=== PATIENT | female | born 1950 | race Caucasian/White ===

== ENCOUNTER 2023-04-14 12:24 | Outpatient (OUT) | payer MEDICARE, SELFPAY ==
--- NOTE | 2023-04-14 12:43 | CA_ITS ---
[facility] Test Date: 2023-04-28 Pat Name: DANIEL HERNANDEZ Department: Room: - Gender: Female [employer]: : 1950 Requested By: BRISA SCHROEDER Order Number: [id number] Reading MD: BRISA SCHROEDER Interpretive Statements Predominant rhythm is sinus with average rate of 77 bpm Tachycardia - max rate of 151 bpm - 257 episodes of PSVT w/ longest duration of 239 beats - longest episode of 1hr 2min 32sec w/ rate of 117-145 bpm Bradycardia - min rate of 47 bpm - longest episodes of 2min 29sec w/ rate of 55-59 bpm Ventricular ectopy - 49 PVC Second degree AV block type I Patient triggered events: 2 - no symptoms noted - associated w/ normal sinus rhythm and rate of 127 bpm Impression: Predominant rhythm is sinus with average rate of 77 bpm Fastest rate of 151 bpm and slowest rate of 47 bpm 49 PVC Second degree AV block type I noted on occasion Electronically Signed On 04-29-2023 7:28:25 EDT by BRISA SCHROEDER
== END 2023-04-14 12:25 | disposition home or self-care (01) ==
LOC: CARD 12:28
PROVIDERS: PCP Internal Medicine; Visit Provider Internal Medicine
DX: R00.2 Palpitations (principal)
CPT/HCPCS: 93242

== ENCOUNTER 2023-05-04 07:55 | Outpatient (OUT) | payer MEDICARE, SELFPAY ==
--- NOTE | 2023-05-04 07:58 | MM_ITS ---
Patient: DANIEL HERNANDEZ Exam Date: 05/04/2023 : 1950 Gender:F Ordering : DR Huy Hernandez D.O. Admission #: [id number] Family : Order #: [id number] CLICK HERE TO VIEW EXAM RADIOLOGY REPORT PROCEDURE: MM TOMOSYNTHESIS SCREENING BI COMPARISON: MG MAMM SCREEN 3D ODELL CAD, 05/02/2022. MG MAMM SCREEN 3D ODELL CAD, 04/19/2021. MG MAMM SCREEN ODELL W CAD, 02/27/2020. MG MAMM SCREEN ODELL W CAD, 04/30/2018. INDICATIONS: Screening Calculator Name NCI Breast Cancer Risk Assessment Tool 5 Year Breast Cancer Risk 1.60% Lifetime Breast Cancer Risk 3.40% Personal Breast Cancer No Personal Ovarian Cancer No Treatments None Family Cancers Father with rectal cancer at age 70. LOCATION: [facility] BREAST COMPOSITION: Almost entirely fatty. FINDINGS: DIAGNOSTIC CATEGORY 2--BENIGN FINDING: RIGHT BREAST: No significant suspicious finding. Stable, chronic skin surface mole upper outer quadrant. No significant change has occurred. LEFT BREAST: No significant suspicious finding. No significant change has occurred. RECOMMENDATIONS: ROUTINE MAMMOGRAM AND CLINICAL EVALUATION IN 12 MONTHS. PLEASE NOTE: A NORMAL MAMMOGRAM DOES NOT EXCLUDE THE POSSIBILITY OF BREAST CANCER. A CLINICALLY SUSPICIOUS PALPABLE LUMP SHOULD BE BIOPSIED. Dictated by: Maninder Yarbrough M.D. on 05/05/2023 at 12:43 Approved by: Maninder Yarbrough M.D. on 05/05/2023 at 13:03
[2023-05-04 08:39] LABS: Basophils Absolute Auto 0.1 10^3/uL (0.0-0.1); Basophils Percent Auto 0.9 % (0.2-2.0); Eosinophils Absolute Auto 0.3 10^3/uL (0.0-0.7); Eosinophils Percent Auto 5.9 % (0.9-7.0); Hemoglobin 13.2 g/dL (12.0-16.0); Immature Granulocytes Abs Auto 0.02 10^3/uL (0.00-0.03); Immature Granulocytes Pct Auto 0.4 % (0.0-0.5); Lymphocytes Absolute Auto 1.8 10^3/uL (1.2-3.8); Lymphocytes Percent Auto 32.4 % (20.5-60.0); Mean Corpuscular HGB Conc 33.8 g/dL (29.9-35.2); Mean Corpuscular Hemoglobin 31.4 pg (26.7-34.0); Mean Corpuscular Volume 92.9 fL (81.0-99.0); Monocytes Absolute Auto 0.5 10^3/uL (0.3-0.8); Monocytes Percent Auto 8.2 % (1.7-12.0); Neutrophils Absolute Auto 2.9 10^3/uL (1.4-6.5); Neutrophils Percent Auto 52.2 % (43.0-75.0); Platelet Count 299 10^3/uL (150-450); Red Cell Distribution Width 12.9 % (11.0-15.0); White Blood Count 5.6 10^3/uL (4.0-11.0)
[2023-05-04 09:21] LABS: Alanine Aminotransferase 38 U/L (14-59); Anion Gap 10.2; BUN Creatinine Ratio 40.6; Calcium 9.6 mg/dL (8.5-10.1); Carbon Dioxide 30.5 mmol/L (21.0-32.0); Chloride 100 mmol/L (98-107); Chol HDL Ratio 3.1; Cholesterol 169 mg/dL (<=200); Estimated GFR (African America >60 (>=60); Estimated GFR (Non-African Ame >60 (>=60); Glucose 107 mg/dL (74-106); HDL Cholesterol 54 mg/dL (40-60); LDL Cholesterol Calculated 86.4 mg/dL; Potassium 3.7 mmol/L (3.5-5.1); Sodium 137 mmol/L (136-145); Thyroid Stimulating Hormone 1.514 uIU/mL (0.358-3.740); Triglycerides 143 mg/dL (<=150); VLDL CHOLESTEROL 28.6 mg/dL
== END 2023-05-04 07:56 | disposition home or self-care (01) ==
LOC: MAMMO 07:55
PROVIDERS: PCP Internal Medicine; Visit Provider Internal Medicine
DX: Z12.31 Encounter for screening mammogram for malignant neoplasm of breast (principal); R00.2 Palpitations; I10 Essential (primary) hypertension; E78.00 Pure hypercholesterolemia, unspecified; Z79.899 Other long term (current) drug therapy; Z80.8 Family history of malignant neoplasm of other organs or systems
CPT/HCPCS: 36415; 77063; 77067; 80048; 80061; 84443; 84460; 85025

== ENCOUNTER 2023-10-15 11:12 | Outpatient (OUT) | payer MEDICARE, SELFPAY ==
--- NOTE | 2023-10-15 10:40 | NM_ITS ---
Patient Name: DANIEL HERNANDEZ MR#: [id number] : 1950 Exam Date: 10/15/2023 Ordering Doctor: DR Huy Hernandez D.O. RADIOLOGY REPORT PROCEDURE: NM ANA PERF SPECT REST STR COMPARISON: None. INDICATIONS: PALPITATIONS, SYMPTOMATIC PVCs, DYSPNEA ON EXERTION TECHNIQUE: Exam Description: Stress/Rest one day protocol gated SPECT Rest Imagin.1 mCi Tc-99m Cardiolite IV on 10/15/2023 Stress Imaging 30.7 mCi Tc-99m Cardiolite IV on 10/15/2023 Exercise Protocol: 0.4 mg Lexiscan given IV Heart Rate (bpm): Rest: 65 Max: 173 PMHR: 119 Blood Pressure: Rest: 108/68 Max: 128/70 Symptoms: Rest and peak stress ECG findings were abnormal and the exercise portion of the study was abnormal per attending physician Dr. Sriram Hernandez . For more details please see separate cardiac stress test report. FINDINGS: QUALITY OF STUDY: Excellent. PERFUSION DEFECT: None. LOCATION: N/A SIZE: N/A. SEVERITY: N/A. TYPE: N/A. WALL MOTION: Normal. LV SIZE: Normal. 54 mL. TID / TCD: None; 0.8 LVEF: Normal. Calculated EF 84%. SUMMARY: Myocardial perfusion imaging study is NORMAL. CONCLUSION: 1. Normal nuclear medicine myocardial perfusion scan. 2. Abnormal stress test. Please see Dr. Sriram Hernandez's report. Dictated by: Maninder Yarbrough M.D. on 10/16/2023 at 14:59 Approved by: Maninder Yarbrough M.D. on 10/16/2023 at 15:02
--- NOTE | 2023-10-15 13:20 | PM.STRESS ---
Stress Test Stress Test Requesting physician: Huy Hernandez Procedure: Lexiscan stress test General Information: Reason for Stress Test: [evaluation of the patient with palpitations and dyspnea on exertion.] Cardiac History and Risk Factors: [Mrs. Romero is a 73-year-old patient with no personal history of coronary disease she has a strong family history with siblings and parents having coronary disease. Her primary risk factors include essential hypertension and hyperlipidemia.] Resting 12 - Lead Electrocardiogram: Normal sinus rhythm with ventricular rate of 65 bpm. The NC interval is 0.16, QRS 0.08. QT 0.40 all within normal limits. There are no pathologic Q waves and only nonspecific ST-T wave changes. Stress Test: Protocol: [Lexiscan protocol] Exercise Capacity: [Not applicable] Blood Pressure Response: [Blood pressure decreased with an increase in heart rate which is appropriate for Lexiscan infusion] Rhythm: [Patient remained in sinus rhythm during infusion.] ST - Response: [Immediately after Lexiscan injection the patient developed [address] depression with flattening of T waves in the inferior lateral leads. This resolved within one minute without treatment.] Patient Response: [The patient did complain of shortness of breath and chest heaviness during infusion. This resolved within three minutes without treatment] Interpretation: There was objective and subjective evidence suspicious for myocardial ischemia during infusion. Cardiolite was injected with images in interpretation pending
[2023-10-15] MEDS: REGADENOSON 0.4 MG/5 ML SYRINGE IV (13:22)
== END 2023-10-15 11:13 | disposition home or self-care (01) ==
LOC: NM 11:12
PROVIDERS: PCP Internal Medicine; Visit Provider Internal Medicine
DX: R00.2 Palpitations (principal); I49.3 Ventricular premature depolarization; R07.2 Precordial pain; R06.09 Other forms of dyspnea
CPT/HCPCS: 78452; 93017; A9500; J2785

== ENCOUNTER 2023-10-22 09:30 | Outpatient (OUT) | payer MEDICARE, SELFPAY ==
--- OUTSIDE RECORDS SUMMARY | 2023-10-22 09:35 | XMS_ITS | CCD ---
Author Name Unknown Address [address] [place] [address] Organization [facility] Care Team Providers Care Kitchen Food Server Name Role Phone ELDA, DR LEDEZMA Attending Unavailable ELDA, DR LEDEZMA Consulting Unavailable ELDA, DR LEDEZMA Primary Care Unavailable ELDA, DR LEDEZMA Admitting Unavailable KSENIA, DR MANINDER Burrell Consulting Unavailable DIANE GARAY Attending Unavailable DIANE GARAY Consulting Unavailable ELDA, DR LEDEZMA Primary Care Unavailable DIANE GARAY Admitting Unavailable Huy Schroeder Unavailable JEANMARIE BEST Attending Unavailable Allergies Allergy Classification Reported Allergen(s) Allergy Type Date of Onset Reaction(s) Facility (1 source) HYDROmorphone Drug Allergy 7 [facility] (1 source) Morphine Drug Allergy 7 [facility] (1 source) Sulfonamides (Antibiotic) Drug allergy (disorder) 7 [facility] (6 sources) HYDROmorphone Drug Allergy Unknown [facility] Other (6 sources) Morphine Drug Allergy Unknown [facility] Other (4 sources) Triple Sulfonamides *SULFONAMIDES* Propensity to adverse reactions Unknown [facility] [employer] Other Medications Current Medications Medication Drug Class(es) Dates Sig (Normalized) Sig (Original) aspirin 81 mg delayed release oral tablet (6 sources) Platelet Aggregation Inhibitor, Nonsteroidal Anti-inflammator y Drug take 1 tablet by mouth every twenty-four hours Aspirin 81 81 MG 1 tablet Orally Once a day Active atorvastatin 20 mg oral tablet (6 sources) HMG-CoA Reductase Inhibitor take 1 tablet by mouth once daily in the evening Atorvastatin Calcium 20 MG TAKE ONE TABLET BY MOUTH EVERY EVENING Active Calcium (6 sources) Phosphate Binder, Calcium Calcium + D Active hydroCHLOROthiazide 25 mg oral tablet (6 sources) Thiazide Diuretic Start: 3 take 1 tablet by mouth every twenty-four hours hydroCHLOROthiazide 25 MG 1 tablet in the morning Orally Once a day Oct, Active lisinopril 20 mg oral tablet (6 sources) Angiotensin Converting Enzyme Inhibitor Start: 3 take 1 tablet by mouth every twenty-four hours Lisinopril 20 MG 1 tablet Orally Once a day Oct, Active meclizine hydrochloride 25 mg oral tablet (6 sources) Antiemetic Start: 3 take 1 tablet by mouth every six hours as needed Meclizine HCl 25 MG 1 tablet Orally every 6 hours as needed for 5 days Oct, Active 24 hr metoprolol succinate 50 mg extended release oral tablet (9 sources) beta-Adrenergic Mary Lou Start: 3 take 1 tablet by mouth every twenty-four hours Metoprolol Succinate ER 50 MG 1 tablet Orally Once a day replacing 25 mg Apr, Active Start: 11-10-2022 take 1 tablet by ham th every twenty-four hours Metoprolol Succinate ER 25 MG 1 tablet Orally Once a day for 30 days Oct, Active Start: 11-06-2022 take 1 capsule by mouth once d aily Metoprolol Succinate 25 MG 1 capsule Orally Once a day Oct, Active ondansetron 4 mg disintegrating oral tablet (6 sources) Serotonin-3 Receptor Antagonist Start: 11-06-2022 take 1 tablet by mouth every six hours as needed Ondansetron 4 MG 1 tablet on the tongue and allow to dissolve Orally every 6 hours as needed for 5 days Oct, Active potassium chloride 10 meq extended release oral tablet (6 sources) take 1 tablet by mouth once daily Potassium Chloride ER 10 MEQ TAKE ONE TABLET BY MOUTH DAILY for 30 Active take 1 tablet by mouth every twe lve hours Klor-Con 10 10 MEQ 1 tablet with food Orally Twice a day Active rOPINIRole 0.25 mg oral tablet (6 sources) Nonergot Dopamine Agonist take 1 tablet by mouth once daily in the evening rOPINIRole HCl 0.25 MG TAKE ONE TABLET BY MOUTH EVERY EVENING for 30 Active Problems Active Problems Problem Classification Problem Date Documented Date Episodic/Chronic Cardiac dysrhythmias (8 sources) Atrial fibrillation; Translations: [Unspecified atrial fibrillation] Chronic Cardiac dysrhythmias (2 sources) Palpitations Episodic Conditions associated with dizziness or vertigo (6 sources) Benign paroxysmal positional vertigo; Translations: [Benign paroxysmal vertigo, bilateral] Episodic Disorders of lipid metabolism (13 sources) Familial hypercholesterolemia; Translations: [Pure hypercholesterolemia] Onset: 05-05-2022 Chronic Essential hypertension (15 sources) Essential (primary) hypertension; Translations: [Essential hypertension] Onset: 05-05-2022 Chronic Fluid and electrolyte disorders (6 sources) Hypokalemia; Translations: [Hypokalemia] Episodic Menopausal disorders (6 sources) Decreased estrogen level; 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 Nonspecific chest pain (1 source) Precordial pain Episodic Osteoarthritis (6 sources) Localized, primary osteoarthritis of the shoulder region; Translations: [Primary osteoarthritis, right shoulder] Chronic Other aftercare (2 sources) Other shelter (current) drug therapy; Translations: [OTH LONG-TERM CURRENT DRUG THERAPY] Onset: 05-05-2022 Episodic Other connective tissue disease (6 sources) Non-traumatic partial tear of right rotator cuff; Translations: [Incomplete rotator cuff tear or rupture of right shoulder, not specified as traumatic] Episodic Other hereditary and degenerative nervous system conditions (6 sources) Restless legs; Translations: [Restless legs syndrome] Chronic Other lower respiratory disease (1 source) Other forms of dyspnea Episodic Other non-traumatic joint disorders (6 sources) Shoulder pain; Translations: [Pain in left shoulder] Episodic Other nutritional; endocrine; and metabolic disorders (6 sources) Simple obesity ; Translations: [Other obesity due to excess calories] Chronic Other nutritional; endocrine; and metabolic disorders (6 sources) Obesity; Translations: [Obesity, unspecified] Chronic Other nutritional; endocrine; and metabolic disorders (4 sources) Obesity caused by energy imbalance; Translations: [Other obesity due to excess calories] Chronic Other nutritional; endocrine; and metabolic disorders (4 sources) Body mass index 30+ - obesity; Translations: [Body mass index (BMI) 31.0-31.9, adult] Chronic Other nutritional; endocrine; and metabolic disorders (2 sources) Other obesity due to excess calories Chronic Other nutritional; endocrine; and metabolic disorders (2 sources) Body mass index (BMI) 31.0-31.9, adult Chronic Other screening for suspected conditions (not mental disorders or infectious disease) (5 sources) Encounter for screening mammogram for malignant neoplasm of breast; Translations: [ENC SCR MAMMO MALIG NEOPLASM BREAST] Onset: 05-02-2022 Episodic Residual codes; unclassified (1 source) Family history of malignant neoplasm of other organs or systems; Translations: [FAM HX MALIG NEOPLASM OTH ORGN/SYS] Onset: 05-05-2022 Episodic Sprains and strains (6 sources) Strain of muscle(s) and tendon(s) of the rotator cuff of left shoulder, initial encounter; Translations: [Strain of left rotator cuff capsule, initial encounter] Episodic Past or Other Problems Problem Classification Problem Date Documented Da te Episodic/Chronic Immunizations and screening for infectious disease (4 sources) Encounter for immunization; Translations: [ENCOUNTER FOR IMMUNIZATION] Onset: 07-09-2021 Episodic Results Test Name Value Interpretation Reference Range Facil ity CBC AUTO DIFFon 05-02-2022 BASO # 0.0 103/ul Normal 0.0-0.1 [facility] Comment on above: Performed By: #### C BC #### [facility] [address] [place] [address] Dr. Lisa Avila Basophils/100 WBC (Bld) 0.9 % Normal 0.2-2.0 [facility] Comment on above: Performed By: #### C BC #### [facility] [address] [place] [address] Dr. Lisa Avila EO # 0.2 103/ul Normal 0.0-0.7 [facility] Comment on above: Performed By: #### C BC #### [facility] [address] [place] [address] Dr. Lisa Avila Eosinophils/100 WBC (Bld) 4.1 % Normal 0.9-7.0 [facility] Comment on above: Performed By: #### C BC #### [facility] [address] [place] [address] Dr. Lisa Avila Erythrocyte distribution width (RBC) [Ratio] 12.5 % Normal 11.0-15.0 [facility] Comment on above: Performed By: #### C BC #### [facility] [address] [place] [address] Dr. Lisa Avila Hematocrit (Bld) [Volume fraction] 37.0 % Normal 36.0-48.0 [facility] Comment on above: Performed By: #### C BC #### [facility] [address] [place] [address] Dr. Lisa Avila Hemoglobin (Bld) [Mass/Vol] 12.3 g/dL Normal 12.0-16.0 [facility] Comment on above: Performed By: #### C BC #### [facility] [address] [place] [address] Dr. Lisa Avila IG # 0.01 10e3/ul Normal 0.00-0.03 [facility] Comment on above: Performed By: #### C BC #### [facility] [address] [place] [address] Dr. Lisa Avila IG % 0.2 % Normal 0.0-0.5 [facility] Comment on above: Performed By: #### C BC #### [facility] [address] [place] [address] Dr. Lisa Avila LYMPH # 1.6 103/ul Normal 1.2-3.8 [facility] Comment on above: Performed By: #### C BC #### [facility] [address] [place] [address] Dr. Lisa Avila Lymphocytes/100 WBC (Bld) 33.6 % Normal 20.5-60.0 [facility] Comment on above: Performed By: #### C BC #### [facility] [address] [place] [address] Dr. Lisa Avila MANUAL DIFF REQ NO Normal [facility] Comment on above: Performed By: #### C BC #### [facility] [address] [place] [address] Dr. Lisa Avila MCH (RBC) [Entitic mass] 31.2 pg Normal 26.7-34.0 [facility] Comment on above: Performed By: #### C BC #### [facility] [address] [place] [address] Dr. Lisa Avila MCHC (RBC) [Mass/Vol] 33.2 g/dL Normal 29.9-35.2 [facility] Comment on above: Performed By: #### C BC #### [facility] [address] [address] [address] Lisa Avila MCV (RBC) [Entitic vol] 93.9 fL Normal 81.0-99.0 [facility] Comment on above: Performed By: #### C BC #### [facility] [address] [address] [address] Lisa Avila MONO # 0.3 103/ul Normal 0.3-0.8 [facility] Comment on above: Performed By: #### C BC #### [facility] [address] [address] [address] Lisa Avila Monocytes/100 WBC (Bld) 7.4 % Normal 1.7-12.0 [facility] Comment on above: Performed By: #### C BC #### [facility] [address] [place] [address] Dr. Lisa Avila NEUT # 2.5 103/ul Normal 1.4-6.5 [facility] Comment on above: Performed By: #### C BC #### [facility] [address] [place] [address] Dr. Lisa Avila Neutrophils/100 WBC (Bld) 53.8 % Normal 43.0-75.0 [facility] Comment on above: Performed By: #### C BC #### [facility] [address] [address] [address] Lisa Avila Platelet mean volume (Bld) [Entitic vol] 9.7 fL Normal 9.5-13.5 [facility] Comment on above: Performed By: #### C BC #### [facility] [address] [address] [address] Lisa Avila PLT 276 103/ul Normal 150-450 [facility] Comment on above: Performed By: #### C BC #### [facility] [address] [address] [address] Lisa Avila RBC 3.94 106/ul Critically low 4.20-5.40 [facility] Comment on above: Performed By: #### C BC #### [facility] [address] [address] [address] Lisa Avila WBC 4.6 103/ul Normal 4.0-11.0 [facility] Comment on above: Performed By: #### C BC #### [facility] [address] [address] [address] Lisa Avila LIPID PROFILEon 05-02-2022 CHOL-HDL RATIO NORM SEE BELOW Normal [facility] Comment on above: Result Comment: 3.3 - 4.4 LOW RISK 4.4 - 7.1 AVERAGE RISK 7.1 - 11.0 MODERATE RISK >11.0 HIGH RISK Performed By: #### A LT, LIPID, BMP #### [facility] [address] [place] [address] Dr. Lisa Avila Cholesterol [Mass/Vol] 158 mg/dL Normal <=200 [facility] Comment on above: Performed By: #### A LT, LIPID, BMP #### [facility] [address] [place] [address] Dr. Lisa Avila Cholesterol in HDL [Mass/Vol] 49 mg/dL Normal 40-60 [facility] Comment on above: Performed By: #### A LT, LIPID, BMP #### [facility] [address] [place] [address] Dr. Lisa Avila Cholesterol in LDL [Mass/Vol] 86.8 mg/dL Normal [facility] Comment on above: Performed By: #### A LT, LIPID, BMP #### [facility] [address] [address] [address] Lisa Avila Cholesterol.total/C holesterol in HDL [Mass ratio] 3.2 {ratio} Normal [facility] Comment on above: Performed By: #### A LT, LIPID, BMP #### [facility] [address] [place] [address] Dr. Lisa Avila HDL NORMAL > or = 60 mg/dl - LO W CARDIOVASCULAR RISK <40 mg/dl - HIGH CARDIOVASCULAR RISK Normal [facility] Comment on above: Performed By: #### A LT, LIPID, BMP #### [facility] [address] [place], [place] [address] Dr. Lisa Avila LDL CALC NORMAL SEE BELOW Normal [facility] Comment on above: Result Comment: <100 mg/dl OPTIMAL 100 - 129 mg/dl NEAR OR ABOVE OPTIMAL 130 - 159 mg/dl BORDERLINE HIGH 160 - 189 mg/dl HIGH >190 mg/dl VERY HIGH Performed By: #### A LT, LIPID, BMP #### [facility] [address] [address] [address] Lisa Avila Triglyceride [Mass/Vol] 111 mg/dL Normal <=150 [facility] Comment on above: Performed By: #### A LT, LIPID, BMP #### [facility] [address] [address] [address] Lisa Avila VLDL CALC 22.2 mg/dL Normal [facility] Comment on above: Performed By: #### A LT, LIPID, BMP #### [facility] [address] [address] [address] Lisa Avila MG MAMM SCREEN 3D ODELL CADon 05-02-2022 MG MAMM SCREEN 3D ODELL CAD Patient: DANIEL HERNANDEZ Exam Date: 05/02/2022 : 1950 Gender:F Ordering : DR HUY SCHROEDER D.O. Admission #: [id number] Family : Order #: [id number] CLICK HERE TO VIEW EXAM RADIOLOGY REPORT PROCEDURE: MAMMOGRAM SCREENING 3D BILATERAL CAD COMPARISON: MG MAMM SCREEN 3D ODELL CAD, 04/19/2021. MG MAMM SCREEN ODELL W CAD, 02/27/2020. INDICATIONS: Screening mammography Calculator Name NCI Breast Cancer Risk Assessment Tool 5 Year Breast Cancer Risk 1.60% Lifetime Breast Cancer Risk 3.70% Personal Breast Cancer No Personal Ovarian Cancer No Treatments None Family Cancers Father with rectal cancer at age 70. LOCATION: [facility] BREAST COMPOSITION: Almost entirely fatty. FINDINGS: DIAGNOSTIC CATEGORY 1--NEGATIVE. RIGHT BREAST: No significant suspicious finding. No significant change has occurred. LEFT BREAST: No significant suspicious finding. No significant change has occurred. RECOMMENDATIONS: ROUTINE MAMMOGRAM AND CLINICAL EVALUATION IN 12 MONTHS. PLEASE NOTE: A NORMAL MAMMOGRAM DOES NOT EXCLUDE THE POSSIBILITY OF BREAST CANCER. A CLINICALLY SUSPICIOUS PALPABLE LUMP SHOULD BE BIOPSIED. Dictated by: Maninder Yarbrough M.D. on 05/02/2022 at 09:35 Approved by: Maninder Yarbrough M.D. on 05/02/2022 at 09:50 Normal [facility] PROF CHEM 8 (BAS METB)on Anion gap [Moles/Vol] 9.9 mmol/L Normal [facility] Comment on above: Performed By: #### A LT, LIPID, BMP #### [facility] [address] [place] [address] Dr. Lisa Avila Calcium [Mass/Vol] 9.1 mg/dL Normal 8.5-10.1 [facility] Comment on above: Performed By: #### A LT, LIPID, BMP #### [facility] [address] [place] [address] Dr. Lisa Avila Chloride [Moles/Vol] 101 mmol/L Normal 98-107 [facility] Comment on above: Performed By: #### A LT, LIPID, BMP #### [facility] [address] [place] [address] Dr. Lisa Avila CO2 [Moles/Vol] 30.8 mmol/L Normal 21.0-32.0 [facility] Comment on above: Performed By: #### A LT, LIPID, BMP #### [facility] [address] [place] [address] Dr. Lisa Avila Creatinine [Mass/Vol] 0.62 mg/dL Normal 0.55-1.02 [facility] Comment on above: Performed By: #### A LT, LIPID, BMP #### [facility] [address] [place] [address] Dr. Lisa Avila EGFR-AF UGANDAN 60 mL/min/1.73m2 Normal >=60 [facility] Comment on above: Performed By: #### A LT, LIPID, BMP #### [facility] [address] [place] [address] Dr. Lisa Avila EGFR-NON AF UGANDAN 60 mL/min/1.73m2 Normal >=60 [facility] Comment on above: Performed By: #### A LT, LIPID, BMP #### [facility] [address] [address] [address] Lisa Avila Glucose [Mass/Vol] 101 mg/dL Normal 74-[address] [facility] Comment on above: Performed By: #### A LT, LIPID, BMP #### [facility] [address] [place] [address] Dr. Lisa Avila Potassium [Moles/Vol] 3.7 mmol/L Normal 3.5-5.1 [facility] Comment on above: Performed By: #### A LT, LIPID, BMP #### [facility] [address] [place] [address] Dr. Lisa Avila Sodium [Moles/Vol] 138 mmol/L Normal 136-145 [facility] Comment on above: Performed By: #### A LT, LIPID, BMP #### [facility] [address] [place] [address] Dr. Lisa Avila Urea nitrogen [Mass/Vol] 24.0 mg/dL Critically high 7.0-18.0 [facility] Comment on above: Performed By: #### A LT, LIPID, BMP #### [facility] [address] [place] [address] Dr. Lisa Avila Urea nitrogen/Creatinine [Mass ratio] 38.7 mg/mg Normal [facility] Comment on above: Performed By: #### A LT, LIPID, BMP #### [facility] [address] [place] [address] Dr. Lisa Avila [facility] 05-02-2022 ALT [Catalytic activity/Vol] 33 U/L Normal 14-59 [facility] Comment on above: Performed By: #### A LT, LIPID, BMP #### [facility] [address] [place] [address] Dr. Lisa Avila Vital Signs Date Time Vital Sign Value Performing Clinician Facility 10-12-2023 08:30-0500 Body height 166.37 cm Huy Schroeder Other [facility] Other 10-12-2023 08:30-0500 Body mass index (BMI) [Ratio] 31.82 kg/m2 Huy Ball Other [facility] Other 10-12-2023 08:30-0500 Body weight 88.09 kg Huy Ball Other [facility] Other 10-12-2023 08:30-0500 Diastolic blood pressure 75 mm[Hg] Huy Ball Other [facility] Other 10-12-2023 08:30-0500 Respiratory rate 12 /min Huy Ball Other [facility] Other 10-12-2023 08:30-0500 Systolic blood pressure 132 mm[Hg] Huy Ball Other [facility] Other 04-09-2023 08:30-0400 Body height 166.37 cm Huy Ball Other [facility] Other 04-09-2023 08:30-0400 Body mass index (BMI) [Ratio] 31.69 kg/m2 Huy Ball Other [facility] Other 04-09-2023 08:30-0400 Body weight 87.73 kg Huy Ball Other [facility] Other 04-09-2023 08:30-0400 Diastolic blood pressure 81 mm[Hg] Huy Ball Other [facility] Other 04-09-2023 08:30-0400 Respiratory rate 12 /min Huy Ball Other [facility] Other 04-09-2023 08:30-0400 Systolic blood pressure 122 mm[Hg] Huy Ball Other [facility] Other Encounters Encounter Date Encounter Type Care Provider Facility Start: 10-12-2023 End: 10-12-2023 ambulatory Huy Ball Other [facility] Other Start: 10-12-2023 Office outpatient visit [address] [facility] Start: 09-24-2023 End: 09-24-2023 ambulatory JEANMARIE BEST Not Available Start: 05-05-2023 End: 05-05-2023 ambulatory Huy Elda Other [facility] Other Start: 05-05-2023 Telephone encounter Huy Elda [facility] Start: 05-01-2023 End: 05-01-2023 ambulatory Huy Schroeder Other [facility] Other Start: 05-01-2023 Telephone encounter Huy Schroeder [facility] Start: 04-09-2023 End: 04-09-2023 ambulatory Huy Schroeder Other [facility] Other Start: 04-09-2023 Patient encounter procedure Huy Schroeder [facility] Start: 11-10-2022 End: 11-10-2022 ambulatory Huy Schroeder Other [facility] Other Start: 11-10-2022 Telephone encounter Huy Schroeder [facility] Start: 11-03-2022 End: 11-03-2022 ambulatory Huy Elda Other [facility] Other Start: 11-03-2022 Telephone encounter Huy Schroeder [facility] Start: 05-02-2022 End: 05-03-[address] HUY SCHROEDER Facility:[facility] Start: 07-09-2021 End: 07-09-2021 ambulatory DIANE GARAY Facility:[facility] Immunizations Immunization Date Immunization Notes Care Provider Fa manuel 08-11-2022 influenza, high dose seasonal, preservative-free Huy Schroeder Other [facility] Other 06-13-2021 influenza virus vaccine, split virus (incl. purified surface antigen) Huy Schroeder Other [facility] Other 06-06-2020 influenza virus vaccine, split virus (incl. purified surface antigen) Huy Schroeder Other [facility] Other 07-06-2018 influenza virus vaccine, split virus (incl. purified surface antigen) Huy Schroeder Other [facility] Other 06-23-2017 influenza virus vaccine, split virus (incl. purified surface antigen) Huy Schroeder Other [facility] Other 06-16-2016 influenza virus vaccine, split virus (incl. purified surface antigen) Huy Schroeder Other [facility] Other 08-13-2015 influenza virus vaccine, split virus (incl. purified surface antigen) Huy Schroeder Other [facility] Other 08-13-2015 pneumococcal conjuga te vaccine, 13 valent Huy Schroeder Other [facility] Other 07-17-2014 influenza virus vaccine, split virus (incl. purified surface antigen) Huy Schroeder Other [facility] Other 06-08-2013 tetanus and diphther ia toxoids, adsorbed, preservative free, for adult use (5 Lf of tetanus toxoid and 2 Lf of diphtheria toxoid) Huy Schroeder Other [facility] Other Payers Date Payer Category Payer Medicare [id number] 1961 Unknown [id number] 1950 Unknown [id number] 1950 Unknown [id number] 1950 Unknown [id number] Social History Date Type Detail Facility Sex Assigned At [place] [facility] Other Evaluation note 10-12-2023 Note Date & Type Note Facility 10-12-2023 Evaluation note Encounter Date Diagnosis Assessment Notes Sep, Primary hypertension (ICD-10 - I10) This patient is instructed to consume a healthy, low-fat, low-salt diet. They are also encouraged to continue exercise to achieve/maintain a normal BMI. Patient is instructed on home BP measurements: - rest for 5 minutes w/o talking.- positioned w/ feet on floor and arm supported.- average best 2/3 readings w/ goal < 135/85.- update office w/ home readings in 2 weeks. Sep, Palpitations (ICD-10 - R00.2) Avoid Caffeine and hydrate w/ minimum 48oz fluids daily. 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 Continue Metoprolol Previous Holter w/ PVC w/o NSVT or AF Discussed further evaluation: - Echo to assess LVEF and valvular function - STress TEsting to assess coronary circulation Sep, GRAVES (dyspnea on exertion) (ICD-10 - R06.09) Avoid Caffeine and hydrate w/ minimum 48oz fluids daily. Continue Metoprolol Previous Holter w/ PVC w/o NSVT or AF Discussed further evaluation: - Echo to assess LVEF and valvular function - STress TEsting to assess coronary circulation Sep, Precordial pain (ICD-10 - R07.2) Avoid Caffeine and hydrate w/ minimum 48oz fluids daily. Continue Metoprolol Previous Holter w/ PVC w/o NSVT or AF Discussed further evaluation: - Echo to assess LVEF and valvular function - STress TEsting to assess coronary circulation Instructed to report to ER for sustained symptoms. Sep, Elevated cholesterol (ICD-10 - E78.00) Instructed on diet and exercise with continued statin therapy.Discussed the beneficial effects of lowering cholesterol in reducing the risk for cerebrovascular and cardiovascular disease. 29 Azael, 2024 Other obesity due to excess calories (ICD-10 - E66.09) This patient has been instructed on a low-fat, high-fiber diet. They are instructed to reduce calories, portion sizes and snacks. It is recommended that they exercise for 30 minutes, 3-5 times weekly. Sep, Body mass index [BMI] 31.0-31.9, adult (ICD-10 - Z68.31) [facility] Other Evaluation note 05-01-2023 Note Date & Type Note Facility 05-01-2023 Evaluation note Encounter Date Diagnosis Assessment Notes Apr, Essential hypertension (ICD-10 - I10) [facility] Other Evaluation note 04-09-2023 Note Date & Type Note Facility 04-09-2023 Evaluation note Encounter Date Diagnosis Assessment Notes Mar, Medicare annual wellness visit, subsequent (ICD-10 - Z00.00) Personalized health advice was given to the beneficiary including a written plan for screenings discussed and provided. Advanced care planning reviewed and/or information given as requested. Additional counseling was provided here today in regards to, [ ]. The above visit was performed by [ ], under direct supervision of [ ]. Document reviewed and amended by provider signed below. Mar, Primary hypertension (ICD-10 - I10) This patient is instructed to consume a healthy, low-fat, low-salt diet. They are also encouraged to continue exercise to achieve/maintain a normal BMI. Mar, Elevated cholesterol (ICD-10 - E78.00) Instructed on diet and exercise with continued statin therapy.Discussed the beneficial effects of lowering cholesterol in reducing the risk for cerebrovascular and cardiovascular disease. Mar, Palpitations (ICD-10 - R00.2) Avoid stimulants and push fluids Increase activity, walk daily Mar, Other obesity due to excess calories (ICD-10 - E66.09) This patient has been instructed on a low-fat, high-fiber diet. They are instructed to reduce calories, portion sizes and snacks. It is recommended that they exercise for 30 minutes, 3-5 times weekly. Mar, Body mass index [BMI] 31.0-31.9, adult (ICD-10 - Z68.31) Mar, High risk medication use (ICD-10 - Z79.899) Mar, Screening mammogram for breast cancer (ICD-10 - Z12.31) [facility] Other Evaluation note 11-10-2022 Note Date & Type Note Facility 11-10-2022 Evaluation note Encounter Date Diagnosis Assessment Notes Oct, Essential hypertension (ICD-10 - I10) [facility] Other Evaluation note Note Date & Type Note Facility Evaluation note No Information [employer] Other History general Narrative - Reported Note Date & Type Note Facility History general Narrative - Reported Type Medical History Obesity (BMI 30-39.9) Medical History Obesity due to excess calories Medical History Hyperlipidemia type II Medical History Essential hypertension Medical History 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 Medical History Estrogen deficiency Medical History Nontraumatic incompl ete tear of right rotator cuff Medical History Restless leg syndrome Medical History Hypokalemia Medical History A-fib Surgical History ROBIN/BSO 03/2004 Surgical History appendectomy 1990 Surgical History hysterectomy Surgical History CERVICAL SPINE FUSION Hospitalization History see surgical history [facility] Other Summary Purpose Family History No Family History Records FoundNo Family History Records Found Advance Directives No Advanced Directives Records FoundNo Advanced Directives Records Found Additional Source Comments INFORMATION SOURCE (unrecogn ized section and content) DATE CREATED AUTHOR 05/08/2022 [facility] DATE CREATED AUTHOR AUTHOR'S ORGANIZ ATION 09/25/[address] [facility] EPIC REASON FOR VISIT (unrecogniz ed section and content) [facility] Results6 month Follow up FOR RECORDS PERTAINING TO PATIENTS WHO ARE OR HAVE BEEN ENROLLED IN A CHEMICAL DEPENDENCY/SUBSTANCEABUSE PROGRAM, SOME INFORMATION MAY BE OMITTED. This clinical summary was aggregated from multiple sources. Caution should be exercised in using it in the provision of clinical care. This summary normalizes information from multiple sources, and as a consequence, information in this document may materially change the coding, format and clinical context of patient data. In addition, data may be omitted in some cases. CLINICAL DECISIONS SHOULD BE BASED ON THE PRIMARY CLINICAL RECORDS. [facility]. provides no warranty or guarantee of the accuracy or completeness of information in this document.
--- NOTE | 2023-10-22 10:31 | CA_ITS ---
Patient Name: DANIEL HERNANDEZ MR#: [id number] : 1950 Exam Date: 10/22/2023 Ordering Doctor: DR BRISA SCHROEDER D.O. ECHOCARDIOGRAM REPORT PROCEDURE: CA ECHO DOPPLER COMPLETE INDICATIONS: Palpitations, PVCs, GRAVES, Precordial pain COMPARISON: None. DESCRIPTION: COMPLETE ECHOCARDIOGRAM Real-time transthoracic echocardiography with 2D, M-mode, spectral and color flow Doppler performed. QUALITY: Technical quality was good. LEFT VENTRICLE: Normal chamber size. Normal left ventricular wall thickness. LV EF: Global left ventricular systolic function is normal. Calculated left ventricular ejection fraction is 64%. No wall motion abnormalities. DIASTOLIC: Normal diastolic function. ATRIAL SEPTUM: Visually appears intact. LEFT ATRIUM: Normal chamber size. RIGHT ATRIUM: Normal chamber size. RIGHT VENTRICLE: Normal chamber size. Normal right ventricular systolic function. TRICUSPID VALVE: Normal mobility and thickness. Mild regurgitation. No evidence of pulmonary hypertension. RVSP 28mmHg MITRAL VALVE: Normal mobility and thickness. No evidence of mitral valve stenosis. Mild mitral annular calcification. Trivial mitral regurgitation. AORTIC VALVE: Normal trileaflet appearance. Thickened aortic valve. Normal leaflet mobility. No evidence of aortic valve stenosis. No aortic regurgitation. AORTIC ROOT: Normal diameter and appearance. PULMONIC VALVE: Normal thickness and mobility. No stenosis. Trivial regurgitation. PERICARDIUM: No evidence of pericardial effusion. IVC: Collapses with inspirations. Normal size. CONCLUSION: 1. Global left ventricular systolic function is normal; visually estimated ejection fraction is 60 to 65% 2. Normal right ventricular size and systolic function 3. Normal diastolic function 4. The left atrium is normal in size 5. Mild tricuspid regurgitation Adult Echocardiography Procedure Report Left Ventricle LVEDD (3.7 - 5.6 cm): 4.19 cm LVESD (2.2 - 4.0 cm): 2.99 cm LVIVS thickness (0.6 - 1.2 cm): 1.14 cm LVPW thickness (0.5 - 1.0 cm): 0.95 cm e': 0.12 m/s E - e': 6.71 LVOT Max Gradient: 4.55 mm[Hg] LVOT Area (cm2): 1.07 m/s Peak Velocity (LVOT): 1.07 m/s Mean Velocity (LVOT): 0.68 m/s LVOT Diameter 1.76 cm Left Ventricular Ejection Fraction: 63.63 % Left Atrium LA Volume Index (2D A2C): 33.32 ml/m2 Left Atrium Systolic Dimension: 3.75 cm Mitral Valve MV E to A Ratio: 1.09 Mitral Valve A-Wave Peak Velocity: 0.75 m/s Mitral Valve E-Wave Peak Velocity: 0.81 m/s Right Ventricle RV Internal Diastolic Dimension: 3.20 cm Aorta AO Root Diam: 2.96 cm Ascending Ao Diam: 2.92 cm Aortic Valve AoV Area (Peak Stalin): 2.08 cm2, 2.08 cm2 AoV Area (VTI): 1.76 cm2, 1.76 cm2 Peak Velocity(Antegrade Flow): 1.24 m/s Peak Gradient(Antegrade Flow): 6.18 mm[Hg] Mean Velocity(Antegrade Flow): 0.86 m/s Mean Gradient(Antegrade Flow): 3.40 mm[Hg] Velocity Time Integral: 34.21 cm Tricuspid Valve Peak Velocity (Regurgitant Flow): 2.47 m/s, 2.50 m/s, 2.44 m/s Pulmonic Valve Mean Gradient: 2.20 mm[Hg] Mean Velocity: 0.70 m/s Peak Velocity: 0.93 m/s, 0.93 m/s Peak Gradient: 3.47 mm[Hg], 3.47 mm[Hg] Right Atrium Right Atrium Systolic Pressure: 41.36 ml, 41.36 ml Dictated by: Luciana Crocker M.D. on 10/22/2023 at 15:56 Approved by: Luciana Crocker M.D. on 10/22/2023 at 16:07
== END 2023-10-22 09:31 | disposition home or self-care (01) ==
LOC: CARD 09:31
PROVIDERS: PCP Internal Medicine; Visit Provider Internal Medicine
DX: R00.2 Palpitations (principal); I49.3 Ventricular premature depolarization; R07.2 Precordial pain; R06.09 Other forms of dyspnea
CPT/HCPCS: 93306

== ENCOUNTER 2024-05-11 10:45 | Outpatient (OUT) | payer MEDICARE, SELFPAY ==
--- NOTE | 2024-05-11 10:47 | MM_ITS ---
Patient Name: DANIEL HERNANDEZ MR#: [id number] : 1950 Exam Date: 05/11/2024 Ordering Doctor: DR BRISA SCHROEDER D.O. RADIOLOGY REPORT PROCEDURE: MM TOMOSYNTHESIS SCREENING BI COMPARISON: MM TOMOSYNTHESIS SCREENING BI, 05/04/2023. MG MAMM SCREEN 3D ODELL CAD, 05/02/2022. INDICATIONS: Screening Calculator Name NCI Breast Cancer Risk Assessment Tool 5 Year Breast Cancer Risk 1.60% Lifetime Breast Cancer Risk 3.20% Personal Breast Cancer No Personal Ovarian Cancer No Treatments None Family Cancers Father with rectal cancer at age 70. LOCATION: [facility] BREAST COMPOSITION: The breasts are almost entirely fatty. FINDINGS: DIAGNOSTIC CATEGORY 2--BENIGN FINDING. NO CHANGE FROM COMPARISON. Scattered benign-appearing calcifications are present. Scattered benign-appearing lymph nodes are present. RIGHT BREAST: No significant suspicious finding. LEFT BREAST: No significant suspicious finding. RECOMMENDATIONS: ROUTINE MAMMOGRAM AND CLINICAL EVALUATION IN 12 MONTHS. PLEASE NOTE: A NORMAL MAMMOGRAM DOES NOT EXCLUDE THE POSSIBILITY OF BREAST CANCER. A CLINICALLY SUSPICIOUS PALPABLE LUMP SHOULD BE BIOPSIED. Dictated by: Tao Sauceda MD on 05/11/2024 at 12:39 Approved by: Tao Sauceda MD on 05/11/2024 at 12:41
--- OUTSIDE RECORDS SUMMARY | 2024-05-11 11:01 | XMS_ITS | CCD ---
Author Organization [facility] Care Team Providers Care Business Management Manager Name Role Phone DR HUY SCHROEDER Attending Unavailable DAVID, DR LEDEZMA Consulting Unavailable DAVID, DR LEDEZMA Primary Care Unavailable DAVID, DR LEDEZMA Admitting Unavailable KSENIA, DR MANINDER Burrell Consulting Unavailable DIANE GARAY Attending Unavailable DIANE GARAY Consulting Unavailable DAVID, DR LEDEZMA Primary Care Unavailable DIANE GARAY Admitting Unavailable Huy Schroeder Unavailable JEANMARIE BEST Attending Unavailable JEANMARIE BEST Attending Unavailable YOLANDE CORNEJO Attending Unavailable JEANMARIE BEST Attending Unavailable Allergies Allergy Classification Reported Allergen(s) Allergy Type Date of Onset Reaction(s) Facility (1 source) HYDROmorphone Drug Allergy 02-14-20 17 [facility] Repository (3 sources) Morphine Drug Allergy 02-14-20 17 Unknown Reaction [facility] Rep[facility] (1 source) Sulfonamides (Antibiotic) Drug allergy (disorder) 02-14-20 17 [facility] Repository (10 sources) HYDROmorphone Drug Allergy 01-11-20 24 Unknown, Unknown Reaction [facility] (8 sources) Morphine Drug Allergy Unknown [facility] Other (6 sources) Triple Sulfonamides *SULFONAMIDES* Propensity to adverse reactions Unknown [facility] Other Medications Current Medications Medication Drug Class(es) Dates Sig (Normalized) Sig (Original) aspirin 81 mg delayed release oral tablet (10 sources) Platelet Aggregation Inhibitor, Nonsteroidal Anti-inflammatory Drug Start: 01-08-2024 take 81 mg by mouth once daily Aspirin Active 81 MG PO Daily January 08, 2024 12:00am take 1 tablet by ham th every twenty-four hours Aspirin 81 81 MG 1 tablet Orally Once a day Active atorvastatin (11 sources) HMG-CoA Reductase Inhibitor Start: 01-23-2024 take 1 tablet by mouth once daily in the evening Atorvastatin Active 0 .ROUTE .COMPLEX 90 January 23, 2024 8:45am TAKE ONE TABLET BY MOUTH EVERY EVENING Start: 01-08-2024 End: 01-23-2024 take 20 mg by mouth once daily Atorvastatin Discontinu ed 20 MG PO Daily January 08, 2024 12:00am January 23, 2024 8:45am take 1 tablet by ham th once daily in the evening Atorvastatin Calcium 20 MG TAKE ONE TABLET BY MOUTH EVERY EVENING Active Calcium (8 sources) Phosphate Binder, Calcium Calcium + D Active hydroCHLOROthiazide 25 mg oral tablet (10 sources) Thiazide Diuretic Start: 2023 take 25 mg by mouth once daily in the morning Hydrochlorothiazide Active 25 MG PO Every morning November 10, 2023 1:00am Start: 11-06-2022 take 1 tablet by ham th every twenty-four hours hydroCHLOROthiazide 25 MG 1 tablet in the morning Orally Once a day Oct, Active lisinopril 20 mg oral tablet (10 sources) Angiotensin Converting Enzyme Inhibitor Start: 11-04-2023 take 20 mg by mouth once daily Lisinopril Active 20 MG PO Daily November 04, 2023 1:00am Start: 11-06-2022 take 1 tablet by ham th every twenty-four hours Lisinopril 20 MG 1 tablet Orally Once a day Oct, Active meclizine hydrochloride 25 mg oral tablet (10 sources) Antiemetic Start: 01-08-2024 take 25 mg by mouth every six hours Meclizine Active 25 MG PO Every 6 hours January 08, 2024 12:00am Start: 11-06-2022 take 1 tablet by ham th every six hours as needed Meclizine HCl 25 MG 1 tablet Orally every 6 hours as needed for 5 days Oct, Active 24 hr metoprolol succinate 50 mg extended release oral tablet (13 sources) beta-Adrenergic Mary Lou Start: 01-08-2024 take 50 mg by mouth once daily Metoprolol Succinate Active 50 MG PO Daily January 08, 2024 12:00am Start: 05-01-2023 take 1 tablet by ham th every twenty-four hours Metoprolol Succinate ER 50 [...] Active ondansetron 4 mg disintegrating oral tablet (8 sources) Serotonin-3 Receptor Antagonist Start: 11-06-2022 take 1 tablet by mouth every six hours as needed Ondansetron 4 MG 1 tablet on the tongue and allow to dissolve Orally every 6 hours as needed for 5 days Oct, Active Potassium Chloride (11 sources) Start: 01-21-2024 take 1 tablet by mouth once daily Potassium Chloride Active 0 .ROUTE .COMPLEX January 21, 2024 3:28pm TAKE ONE TABLET BY MOUTH DAILY Start: 01-08-2024 End: 01-21-2024 take 10 mEq by mouth once daily Potassium Chloride Dis continued 10 MEQ PO Daily January 08, 2024 12:00am January 21, 2024 3:28pm take 1 tablet by ham th once daily Potassium Chloride ER 10 MEQ TAKE ONE TABLET BY MOUTH DAILY for 30 Active take 1 tablet by ham th every twelve hours Klor-Con 10 10 MEQ 1 tablet with food Orally Twice a day Active rOPINIRole (11 sources) Nonergot Dopamine Agonist Start: 01-21-2024 take 1 tablet by mouth once daily in the evening Ropinirole Active 0 .ROUTE .COMPLEX January 21, 2024 3:28pm TAKE ONE TABLET BY MOUTH EVERY EVENING Start: 01-08-2024 End: 01-21-2024 take 0.25 mg by mouth once daily Ropinirole Discontinued 0.25 MG PO Daily January 08, 2024 12:00am January 21, 2024 3:28pm take 1 tablet by ham th once daily in the evening rOPINIRole HCl 0.25 MG TAKE ONE TABLET BY MOUTH EVERY EVENING for 30 Active Problems Active Problems Problem Classification Problem Date Documented Date Episodic/Chronic Cardiac dysrhythmias (16 sources) Atrial fibrillation; Translations: [Unspecified atrial fibrillation] Chronic Cardiac dysrhythmias (2 sources) Palpitations Episodic Conditions associated with dizziness or vertigo (8 sources) Benign paroxysmal positional vertigo; Translations: [Benign paroxysmal vertigo, bilateral] Episodic Disorders of lipid metabolism (20 sources) Familial hypercholesterolemia; Translations: [Pure hypercholesterolemia] Onset: 05-05-2022 Chronic Essential hypertension (20 sources) Essential (primary) hypertension; Translations: [Essential hypertension] Onset: 05-05-2022 Chronic Fluid and electrolyte disorders (8 sources) Hypokalemia; Translations: [Hypokalemia] Episodic Menopausal disorders (8 sources) Decreased estrogen level; 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 Nonspecific chest pain (1 source) Precordial pain Episodic Osteoarthritis (8 sources) Localized, primary osteoarthritis of the shoulder region; Translations: [Primary osteoarthritis, right shoulder] Chronic Other aftercare (2 sources) Other terminal make up operator (current) drug therapy; Translations: [OTH DIRECTOR OF STUDENT SERVICES CURRENT DRUG THERAPY] Onset: 05-05-2022 Episodic Other connective tissue disease (8 sources) Non-traumatic partial tear of right rotator cuff; Translations: [Incomplete rotator cuff tear or rupture of right shoulder, not specified as traumatic] Episodic Other hereditary and degenerative nervous system conditions (10 sources) Restless legs; Translations: [Restless legs syndrome] 01-09-2024 Chronic Other hereditary and degenerative nervous system conditions (2 sources) Restless legs syndrome; Translations: [Restless legs syndrome (RLS)] 01-11-2024 Chronic Other lower respiratory disease (1 source) Other forms of dyspnea Episodic Other non-traumatic joint disorders (9 sources) Shoulder pain; Translations: [Pain in left shoulder] 01-11-2024 Episodic Other nutritional; endocrine; and metabolic disorders (8 sources) Simple obesity ; Translations: [Other obesity due to excess calories] Chronic Other nutritional; endocrine; and metabolic disorders (8 sources) Obesity; Translations: [Obesity, unspecified] Chronic Other nutritional; endocrine; and metabolic disorders (6 sources) Obesity caused by energy imbalance; Translations: [Other obesity due to excess calories] Chronic Other nutritional; endocrine; and metabolic disorders (6 sources) Body mass index 30+ - obesity; Translations: [Body mass index (BMI) 31.0-31.9, adult] Chronic Other nutritional; endocrine; and metabolic disorders (2 sources) Other obesity due to excess calories Chronic Other nutritional; endocrine; and metabolic disorders (2 sources) Body mass index (BMI) 31.0-31.9, adult Chronic Other screening for suspected conditions (not mental disorders or infectious disease) (6 sources) Encounter for screening mammogram for malignant neoplasm of breast; Translations: [Patient encounter status] Onset: 05-02-2022 Episodic Residual codes; unclassified (1 source) Family history of malignant neoplasm of other organs or systems; Translations: [FAM HX MALIG NEOPLASM OTH ORGN/SYS] Onset: 05-05-2022 Episodic Sprains and strains (8 sources) Strain of muscle(s) and tendon(s) of [...] 05-02-2022 BASO # 0.0 103/ul Normal 0.0-0.1 [facility] Comment on above: Performed By: #### C BC #### [facility] Laboratory [address] [place] [address] Dr. Lisa Avila Basophils/100 WBC (Bld) 0.9 % Normal 0.2-2.0 [facility] Comment on above: Performed By: #### C BC #### [facility] [address] [place] [address] Dr. Lisa Avila EO # 0.2 103/ul Normal 0.0-0.7 [facility] Comment on above: Performed By: #### C BC #### [facility] [address] [place] [address] Dr. Lisa Avila Eosinophils/100 WBC (Bld) 4.1 % Normal 0.9-7.0 [facility] Comment on above: Performed By: #### C BC #### [facility] [address] [place] [address] Dr. Lisa Avila Erythrocyte distribution width (RBC) [Ratio] 12.5 % Normal 11.0-15.0 [facility] Comment on above: Performed By: #### C BC #### [facility] [address] [place] [address] Dr. Lisa Avila Hematocrit (Bld) [Volume fraction] 37.0 % Normal 36.0-48.0 [facility] Comment on above: Performed By: #### C BC #### [facility] [address] [place] [address] Dr. Lisa Avila Hemoglobin (Bld) [Mass/Vol] 12.3 g/dL Normal 12.0-16.0 [facility] Comment on above: Performed By: #### C BC #### [facility] [address] [place] [address] Dr. Lisa Avila IG # 0.01 10e3/ul Normal 0.00-0.03 [facility] Comment on above: Performed By: #### C BC #### [facility] [address] [place] [address] Dr. Lisa Avila IG % 0.2 % Normal 0.0-0.5 [facility] Comment on above: Performed By: #### C BC #### [facility] [address] [place] [address] Dr. Lisa Avila LYMPH # 1.6 103/ul Normal 1.2-3.8 [facility] Comment on above: Performed By: #### C BC #### [facility] [address] [place] [address] Dr. Lisa Avila Lymphocytes/100 WBC (Bld) 33.6 % Normal 20.5-60.0 [facility] Comment on above: Performed By: #### C BC #### [facility] [address] [place] [address] Dr. Lisa Avila MANUAL DIFF REQ NO Normal [facility] Comment on above: Performed By: #### C BC #### [facility] [address] [place] [address] Dr. Lisa Avila MCH (RBC) [Entitic mass] 31.2 pg Normal 26.7-34.0 [facility] Comment on above: Performed By: #### C BC #### [facility] [address] [place] [address] Dr. Lisa Avila MCHC (RBC) [Mass/Vol] 33.2 g/dL Normal 29.9-35.2 [facility] Comment on above: Performed By: #### C BC #### [facility] [address] [place] [address] Dr. Lisa Avila MCV (RBC) [Entitic vol] 93.9 fL Normal 81.0-99.0 [facility] Comment on above: Performed By: #### C BC #### [facility] [address] [place] [address] Dr. Lisa Avila MONO # 0.3 103/ul Normal 0.3-0.8 [facility] Comment on above: Performed By: #### C BC #### [facility] [address] [place] [address] Dr. Lisa Avila Monocytes/100 WBC (Bld) 7.4 % Normal 1.7-12.0 [facility] Comment on above: Performed By: #### C BC #### [facility] [address] [place] [address] Dr. Lisa Avila NEUT # 2.5 103/ul Normal 1.4-6.5 [facility] Comment on above: Performed By: #### C BC #### [facility] [address] [place] [address] Dr. Lisa Avila Neutrophils/100 WBC (Bld) 53.8 % Normal 43.0-75.0 [facility] Comment on above: Performed By: #### C BC #### [facility] [address] [place] [address] Dr. Lisa Avila Platelet mean volume (Bld) [Entitic vol] 9.7 fL Normal 9.5-13.5 [facility] Comment on above: Performed By: #### C BC #### [facility] [address] [place] [address] Dr. Lisa Avila PLT 276 103/ul Normal 150-450 [facility] Comment on above: Performed By: #### C BC #### [facility] [address] [place] [address] Dr. Lisa Avila RBC 3.94 106/ul Critically low 4.20-5.40 [facility] Comment on above: Performed By: #### C BC #### [facility] [address] [address] [address] Lisa Avila WBC 4.6 103/ul Normal 4.0-11.0 [facility] Comment on above: Performed By: #### C BC #### [facility] [address] [address] [address] Lisa Avila LIPID PROFILEon 05-02-2022 CHOL-HDL RATIO NORM SEE BELOW Normal [facility] Comment on above: Result Comment: 3.3 - 4.4 LOW RISK 4.4 - 7.1 AVERAGE RISK 7.1 - 11.0 MODERATE RISK >11.0 HIGH RISK Performed By: #### A LT, LIPID, BMP #### [facility] [address] [place] [address] Dr. Lisa Avila Cholesterol [Mass/Vol] 158 mg/dL Normal <=200 [facility] Comment on above: Performed By: #### A LT, LIPID, BMP #### [facility] [address] [place] [address] Dr. Lisa Avila Cholesterol in HDL [Mass/Vol] 49 mg/dL Normal 40-60 [facility] Comment on above: Performed By: #### A LT, LIPID, BMP #### [facility] [address] [place] [address] Dr. Lisa Avila Cholesterol in LDL [Mass/Vol] 86.8 mg/dL Normal [facility] Comment on above: Performed By: #### A LT, LIPID, BMP #### [facility] [address] [place] [address] Dr. Lisa Avila Cholesterol.total/C holesterol in HDL [Mass ratio] 3.2 {ratio} Normal [facility] Comment on above: Performed By: #### A LT, LIPID, BMP #### [facility] [address] [place] [address] Dr. Lisa Avila HDL NORMAL > or = 60 mg/dl - LO W CARDIOVASCULAR RISK <40 mg/dl - HIGH CARDIOVASCULAR RISK Normal [facility] Comment on above: Performed By: #### A LT, LIPID, BMP #### [facility] [address] [place], [place] [address] Dr. Lisa Avila LDL CALC NORMAL SEE BELOW Normal [facility] Comment on above: Result Comment: <100 mg/dl OPTIMAL 100 - 129 mg/dl NEAR OR ABOVE OPTIMAL 130 - 159 mg/dl BORDERLINE HIGH 160 - 189 mg/dl HIGH >190 mg/dl VERY HIGH Performed By: #### A LT, LIPID, BMP #### [facility] [address] [address] [address] Lisa Avila Triglyceride [Mass/Vol] 111 mg/dL Normal <=150 [facility] Comment on above: Performed By: #### A LT, LIPID, BMP #### [facility] [address] [address] [address] Lisa Avila VLDL CALC 22.2 mg/dL Normal [facility] Comment on above: Performed By: #### A LT, LIPID, BMP #### [facility] [address] [address] [address] Lisa Avila MG MAMM SCREEN 3D ODELL CADon 05-02-2022 MG MAMM SCREEN 3D ODELL CAD Patient: YOLANDE ROMERO Exam Date: 05/02/2022 : 1950 Gender:F Ordering : DR HUY SCHROEDER D.O. Admission #: [id number] Family : Order #: [id number] CLICK HERE TO VIEW EXAM RADIOLOGY REPORT [...] rectal cancer at age 68. LOCATION: [facility] BREAST COMPOSITION: Almost entirely fatty. FINDINGS: DIAGNOSTIC [...] M.D. on 05/02/2022 at 09:50 Normal [facility] PROF CHEM 8 (BAS METB)on Anion gap [Moles/Vol] 9.9 mmol/L Normal [facility] Comment on above: Performed By: #### A LT, LIPID, BMP #### [facility] [address] [address] [address] Lisa Avila Calcium [Mass/Vol] 9.1 mg/dL Normal 8.5-10.1 [facility] Comment on above: Performed By: #### A LT, LIPID, BMP #### [facility] [address] [place] [address] Dr. Lisa Avila Chloride [Moles/Vol] 101 mmol/L Normal 98-107 [facility] Comment on above: Performed By: #### A LT, LIPID, BMP #### [facility] [address] [place] [address] Dr. Lisa Avila CO2 [Moles/Vol] 30.8 mmol/L Normal 21.0-32.0 [facility] Comment on above: Performed By: #### A LT, LIPID, BMP #### [facility] [address] [place] [address] Dr. Lisa Avila Creatinine [Mass/Vol] 0.62 mg/dL Normal 0.55-1.02 [facility] Comment on above: Performed By: #### A LT, LIPID, BMP #### [facility] [address] [address] [address] Lisa Avila EGFR-AF CAMEROONIAN 60 mL/min/1.73m2 Normal >=60 [facility] Comment on above: Performed By: #### A LT, LIPID, BMP #### [facility] [address] [address] [address] Lisa Avila EGFR-NON AF CAMEROONIAN 60 mL/min/1.73m2 Normal >=60 [facility] Comment on above: Performed By: #### A LT, LIPID, BMP #### [facility] [address] [address] [address] Lisa Avila Glucose [Mass/Vol] 101 mg/dL Normal 74-106 [facility] Comment on above: Performed By: #### A LT, LIPID, BMP #### [facility] [address] [address] [address] Lisa Avila Potassium [Moles/Vol] 3.7 mmol/L Normal 3.5-5.1 [facility] Comment on above: Performed By: #### A LT, LIPID, BMP #### [facility] [address] [place] [address] Dr. Lisa Avila Sodium [Moles/Vol] 138 mmol/L Normal 136-145 [facility] Comment on above: Performed By: #### A LT, LIPID, BMP #### [facility] [address] [place] [address] Dr. Lisa Avila Urea nitrogen [Mass/Vol] 24.0 mg/dL Critically high 7.0-18.0 [facility] Comment on above: Performed By: #### A LT, LIPID, BMP #### [facility] [address] [place] [address] Dr. Lisa Avila Urea nitrogen/Creatinine [Mass ratio] 38.7 mg/mg Normal [facility] Comment on above: Performed By: #### A LT, LIPID, BMP #### [facility] [address] [place] [address] Dr. Lisa Avila [facility] 05-02-2022 ALT [Catalytic activity/Vol] 33 U/L Normal 14-59 [facility] Comment on above: Performed By: #### A LT, LIPID, BMP #### [facility] [address] [place] [address] Dr. Lisa Avila Vital Signs Date Time Vital Sign Value Performing Clinician Facility 04-20-2024 14:34-0400 Body height 166.37 cm [facility] 04-20-2024 14:34-0400 Body mass index (BMI) [Ratio] 31.6 kg/m2 [facility] 04-20-2024 14:34-0400 Body weight 87.71 kg [facility] 04-20-2024 14:34-0400 Diastolic blood pressure 78 mm[Hg] [facility] 04-20-2024 14:34-0400 Heart rate 94 /min [facility] 04-20-2024 14:34-0400 Respiratory rate 12 /min [facility] 04-20-2024 14:34-0400 Systolic blood pressure 124 mm[Hg] [facility] 01-11-2024 14:07-0400 Body height 166.37 cm [facility] 01-11-2024 14:07-0400 Body mass index (BMI) [Ratio] 32 kg/m2 [facility] 01-11-2024 14:07-0400 Body weight 88.56 kg [facility] 01-11-2024 14:07-0400 Diastolic blood pressure 68 mm[Hg] [facility] 01-11-2024 14:07-0400 Heart rate 84 /min [facility] 01-11-2024 14:07-0400 Respiratory rate 12 /min [facility] 01-11-2024 14:07-0400 Systolic blood pressure 118 mm[Hg] [facility] 10-12-2023 08:30-0500 Body height 166.37 cm Huy Ball Other [facility] Other 10-12-2023 08:30-0500 Body mass index (BMI) [Ratio] 31.82 kg/m2 Huy Ball Other [facility] Other 10-12-2023 08:30-0500 Body weight 88.09 kg Huy Ball Other [facility] Other 10-12-2023 08:30-0500 Diastolic blood pressure 75 mm[Hg] Huy Ball Other [facility] Other 10-12-2023 08:30-0500 Respiratory rate 12 /min Huy Ball Other [facility] Other 10-12-2023 08:30-0500 Systolic blood pressure 132 mm[Hg] [facility] [employer] Other [facility] Other 04-09-2023 08:30-0400 Body height 166.37 cm [facility] [employer] Other [facility] Other 04-09-2023 08:30-0400 Body mass index (BMI) [Ratio] 31.69 kg/m2 [facility] [employer] Other [facility] Other 04-09-2023 08:30-0400 Body weight 87.73 kg [facility] [employer] Other [facility] Other 04-09-2023 08:30-0400 Diastolic blood pressure 81 mm[Hg] [facility] [employer] Other [facility] Other 04-09-2023 08:30-0400 Respiratory rate 12 /min [facility] [employer] Other [facility] Other 04-09-2023 08:30-0400 Systolic blood pressure 122 mm[Hg] [facility] [employer] Other [facility] Other Encounters Encounter Date Encounter Type Care Provider Facility Start: 04-20-2024 End: 04-20-2024 ambulatory [facility] Work Phone: Start: 04-20-2024 End: 04-20-2024 Patient encounter procedure [facility] Work Phone: Start: 03-24-2024 End: 03-24-2024 ambulatory JEANMARIE Rodney ESTEPHANIA Not Available Start: 01-25-2024 End: 01-25-2024 ambulatory YOLANDE CORNEJO Not Available Start: 01-11-2024 End: 01-11-2024 ambulatory [facility] Work Phone: Start: 01-11-2024 End: 01-11-2024 Patient encounter procedure [facility] Work Phone: Start: 12-24-2023 End: 12-24-2023 ambulatory JEANMARIE S LIEBENTHAL Not Available Start: 10-23-2023 End: 10-23-2023 ambulatory Huy Schroeder Other [facility] Other Start: 10-23-2023 Telephone encounter Huy Schroeder [facility] Start: 10-19-2023 End: 10-19-2023 ambulatory Huy Schroeder Other [facility] Other Start: 10-19-2023 Telephone encounter Huy Schroeder [facility] Start: 10-12-2023 End: 10-12-2023 ambulatory Huy Schroeder Other [facility] Other Start: 10-12-2023 Office outpatient visit 25 minutes Huy Schroeder [facility] Start: 09-24-2023 End: 09-24-2023 ambulatory JEANMARIE S LIEBENTHAL Not Available Start: 05-05-2023 End: 05-05-2023 ambulatory Huy Schroeder Other [facility] Other Start: 05-05-2023 Telephone encounter Huy Schroeder FP [facility] Start: 05-01-2023 End: 05-01-2023 ambulatory Huy Schroeder Other [facility] Other Start: 05-01-2023 Telephone encounter Huy Schroeder [facility] Start: 04-09-2023 End: 04-09-2023 ambulatory Huy Schroeder Other [facility] Other Start: 04-09-2023 Patient encounter procedure Huy Schroeder [facility] Start: 11-10-2022 End: 11-10-2022 ambulatory Huy Ball Other [facility] Other Start: 11-10-2022 Telephone encounter Huy HAGER Bal Schroeder [facility] Start: 11-03-2022 End: 11-03-2022 ambulatory Huy David Other [facility] Other Start: 11-03-2022 Telephone encounter Huy Schroeder MADAN Schroeder [facility] Start: 05-02-2022 End: 05-03-[address] HUY SCHROEDER Facility:[facility] Start: 07-09-2021 End: 07-09-2021 ambulatory DIANE GARAY Facility:[facility] Plan of Treatment Date Care Activity Detail Author Comprehensive metabo lic 2000 panel - Serum or Plasma [facility] enter MG Breast - bilateral Screening [facility] Immunizations Immunization Date Immunization Notes Care Provider Fa cility 08-11-2022 influenza virus vaccine, unspecified formulation [facility] 08-11-2022 influenza, high dose seasonal, preservative-free Huy David Other [facility] Other 06-13-2021 influenza virus vaccine, split virus (incl. purified surface antigen) Huy Schroeder Other [facility] Other 06-13-2021 influenza virus vaccine, unspecified formulation [facility] 06-06-2020 influenza virus vaccine, split virus (incl. purified surface antigen) Huy Schroeder Other [facility] Other 06-06-2020 influenza virus vaccine, unspecified formulation [facility] 07-06-2018 influenza virus vaccine, split virus (incl. purified surface antigen) Huy David Other [facility] Other 07-06-2018 influenza virus vaccine, unspecified formulation [facility] 06-23-2017 influenza virus vaccine, split virus (incl. purified surface antigen) Huy Schroeder Other [facility] Other 06-23-2017 influenza virus vaccine, unspecified formulation [facility] 06-16-2016 influenza virus vaccine, split virus (incl. purified surface antigen) Huy Schroeder Other [facility] Other 06-16-2016 influenza virus vaccine, unspecified formulation [facility] 08-13-2015 influenza virus vaccine, split virus (incl. purified surface antigen) Huy Schroeder Other [facility] Other 08-13-2015 influenza virus vaccine, unspecified formulation [facility] 08-13-2015 pneumococcal conjuga te vaccine, 13 valent Huy Schroeder Other [facility] 07-17-2014 influenza virus vaccine, split virus (incl. purified surface antigen) Huy Schroeder Other [facility] Other 07-17-2014 influenza virus vaccine, unspecified formulation [facility] 06-08-2013 tetanus and diphther ia toxoids, adsorbed, preservative free, for adult use (5 Lf of tetanus toxoid and 2 Lf of diphtheria toxoid) Huy Schroeder Other [facility] Payers Date Payer Category Payer Medicare [id number] 1961 Unknown [id number] 1950 Unknown [id number] 2.16.84 [id number] 1950 Unknown [id number] 2.16.84 [id number] 1950 Unknown [id number] 2.16.84 [id number] 1950 Unknown [id number] 2.16.84 [id number] 1948 Unknown [id number] 2.16.84 [id number] 1948 Unknown [id number] 2.16.84 [id number] Social History Date Type Detail Facility Sex Assigned At [facility] Other Start: 1950 Sex Assigned At Female F [facility] Evaluation note 10-12-2023 Note Date & Type [...] the risk for cerebrovascular and cardiovascular disease. Sep, Other obesity due to excess calories (ICD-10 - E66.09) This patient has been instructed on a low-fat, high-fiber diet. They are instructed to reduce calories, portion sizes and snacks. It is recommended that they exercise for 30 minutes, 3-5 times weekly. Sep, Body mass index [BMI] 31.0-31.9, adult (ICD-10 - Z68.31) [facility] Other Evaluation note 05-01-2023 Note Date & Type Note Facility 05-01-2023 Evaluation note Encounter Date Diagnosis Assessment Notes Apr, Essential hypertension (ICD-10 - I10) [facility] Other Evaluation note 04-09-2023 Note Date & [...] mammogram for breast cancer (ICD-10 - Z12.31) [facility] Other Evaluation note 11-10-2022 Note Date & Type Note Facility 11-10-2022 Evaluation note Encounter Date Diagnosis Assessment Notes Oct, Essential hypertension (ICD-10 - I10) [facility] Other Evaluation note Note Date & Type Note Facility Evaluation note No Information [facility] Other Evaluation note Note Date & Type Note Facility Evaluation note Diagnosis Onset Date Elevated cholesterol acute Essential hypertension acute Restless leg syndrome acute Symptomatic PVCs acute [facility] Work Phone: Evaluation note Note Date & Type Note Facility Evaluation note Diagnosis Onset Date Elevated cholesterol acute Essential hypertension acute Restless leg syndrome acute Symptomatic PVCs acute Medicare annual wellness visit, subsequent noneactive [facility] Work Phone: History general Narrative - Reported Note Date [...] SPINE FUSION Hospitalization History see surgical history [facility] Other Summary Purpose Family History No Family History Records FoundNo Family History Records Found Advance Directives Advance Directive Response Recorded Date/ Time Advance Directives No October 12, 2023 2:40pm Chief Complaint and Reason for Visit Chief Complaint Check up Reason for Visit Elevated cholesterol Essential hypertension Restless leg syndrome Symptomatic PVCs Chief Complaint Wellness Reason for Visit Elevated cholesterol Essential hypertension Restless leg syndrome Symptomatic PVCs Medicare annual wellness visit, subsequent Additional Source Comments INFORMATION SOURCE (unrecogn ized section and content) DATE CREATED AUTHOR 05/08/2022 [facility] DATE CREATED AUTHOR AUTHOR'S ORGANIZ ATION 03/30/2024 [facility] EPIC REASON FOR VISIT (unrecogniz ed section and content) prescription refillNo Inform ationwellnessHolter ResultsLab Results6 month Follow upStress test resultsEcho results Care Teams (unrecognized sec tion and content) Team Status: Active Member Role Status Dates Huy Schroeder , Primary Care Provider Active Team Status: Inactive Member Role Status Dates Huy Schroeder , Primary Care Provide r, Attending Provider Active Start: January 11, 2024 End: January 11, 2024 Team Status: Inactive Member Role Status Dates Huy Schroeder , Primary Care Provide r, Attending Provider Active Start: April 20, 2024 End: April 20, 2024 Goals (unrecognized section and content) Goals may be documented in a n alternate section FOR RECORDS PERTAINING TO PATIENTS WHO ARE [...] BE BASED ON THE PRIMARY CLINICAL RECORDS. [facility] [employer] [facility]. provides no warranty or guarantee of the accuracy or completeness of information in this document.
== END 2024-05-11 10:46 | disposition home or self-care (01) ==
LOC: MAMMO 10:45
PROVIDERS: PCP Internal Medicine; Visit Provider Internal Medicine
DX: Z12.31 Encounter for screening mammogram for malignant neoplasm of breast (principal); Z80.8 Family history of malignant neoplasm of other organs or systems
CPT/HCPCS: 77063; 77067

== ENCOUNTER 2024-05-12 07:44 | Outpatient (OUT) | payer MEDICARE, SELFPAY ==
--- OUTSIDE RECORDS SUMMARY | 2024-05-12 07:48 | XMS_ITS | CCD ---
Author Organization [facility] Care Team Providers Care Leathersmith Name Role Phone DR HUY SCHROEDER Attending Unavailable DAVID, DR LEDEZMA Consulting Unavailable DAVID, DR LEDEZMA Primary Care Unavailable DAVID, DR LEDEZMA Admitting Unavailable KSENIA, DR MANINDER Burrell Consulting Unavailable DIANE GARAY Attending Unavailable DIANE GARAY Consulting Unavailable ADVID, DR LEDEZMA Primary Care Unavailable DIANE GARAY Admitting Unavailable Huy Schroeder Unavailable JEANMARIE BEST Attending Unavailable JEANMARIE BEST Attending Unavailable YOLANDE CORNEJO Attending Unavailable JEANMARIE BEST Attending Unavailable Allergies Allergy Classification Reported Allergen(s) Allergy Type Date of Onset Reaction(s) Facility (1 source) HYDROmorphone Drug Allergy 02-14-20 17 [facility] (3 sources) Morphine Drug Allergy 02-14-20 17 Unknown Reaction [facility] (1 source) Sulfonamides (Antibiotic) Drug allergy (disorder) 02-14-20 17 [facility] (10 sources) HYDROmorphone Drug Allergy 01-11-20 24 Unknown, Unknown Reaction [facility] (8 sources) Morphine Drug Allergy Unknown [facility] Other (6 sources) Triple Sulfonamides *SULFONAMIDES* Propensity to adverse reactions Unknown [facility] Other Medications Current Medications Medication Drug Class(es) [...] shoulder] Chronic Other aftercare (2 sources) Other termite treater helper (current) drug therapy; Translations: [OTH CHARACTER ACTOR CURRENT DRUG THERAPY] Onset: 05-05-2022 Episodic Other [...] 05-02-2022 BASO # 0.0 103/ul Normal 0.0-0.1 [facility] Comment on above: Performed By: #### C BC #### [facility] [address] [place] [address] Dr. Lisa Avila Basophils/100 WBC (Bld) 0.9 % Normal 0.2-2.0 [facility] Comment on above: Performed By: #### C BC #### [facility] [address] [place] [address] Dr. Lisa Avila EO # 0.2 103/ul Normal 0.0-0.7 [facility] Comment on above: Performed By: #### C BC #### [facility] [address] [place] [address] Dr. Lisa Avila Eosinophils/100 WBC (Bld) 4.1 % Normal 0.9-7.0 [facility] Comment on above: Performed By: #### C BC #### [facility] [address] [place] [address] Dr. Lisa Avila Erythrocyte distribution width (RBC) [Ratio] 12.5 % Normal 11.0-15.0 [facility] Comment on above: Performed By: #### C BC #### [facility] [address] [place] [address] Dr. Lisa Avila Hematocrit (Bld) [Volume fraction] 37.0 % Normal 36.0-48.0 [facility] Comment on above: Performed By: #### C BC #### [facility] [address] [place] [address] Dr. iLsa Avila Hemoglobin (Bld) [Mass/Vol] 12.3 g/dL Normal 12.0-16.0 [facility] Comment on above: Performed By: #### C BC #### [facility] [address] [place] [address] Dr. Lisa Avila IG # 0.01 10e3/ul Normal 0.00-0.03 [facility] Comment on above: Performed By: #### C BC #### [facility] [address] [place] [address] Dr. Lisa Avila IG % 0.2 % Normal 0.0-0.5 [facility] Comment on above: Performed By: #### C BC #### [facility] [address] [place] [address] Dr. Lisa Avila LYMPH # 1.6 103/ul Normal 1.2-3.8 [facility] Comment on above: Performed By: #### C BC #### [facility] [address] [place] [address] Dr. Lias Avila Lymphocytes/100 WBC (Bld) 33.6 % Normal 20.5-60.0 [facility] Comment on above: Performed By: #### C BC #### [facility] [address] [place] [address] Dr. Lisa Avila MANUAL DIFF REQ NO Normal [facility] Comment on above: Performed By: #### C BC #### [facility] [address] [place] [address] Dr. Lisa Avila MCH (RBC) [Entitic mass] 31.2 pg Normal 26.7-34.0 [facility] Comment on above: Performed By: #### C BC #### [facility] [address] [place] [address] Dr. Lisa Avila MCHC (RBC) [Mass/Vol] 33.2 g/dL Normal 29.9-35.2 [facility] Comment on above: Performed By: #### C BC #### [facility] [address] [place] [address] Dr. Lisa Avila MCV (RBC) [Entitic vol] 93.9 fL Normal 81.0-99.0 [facility] Comment on above: Performed By: #### C BC #### [facility] [address] [place] [address] Dr. Lisa Avila MONO # 0.3 103/ul Normal 0.3-0.8 [facility] Comment on above: Performed By: #### C BC #### [facility] [address] [place] [address] Dr. Lisa Avila Monocytes/100 WBC (Bld) 7.4 % Normal 1.7-12.0 [facility] Comment on above: Performed By: #### C BC #### [facility] [address] [place] [address] Dr. Lisa Avila NEUT # 2.5 103/ul Normal 1.4-6.5 [facility] Comment on above: Performed By: #### C BC #### [facility] [address] [place] [address] Dr. Lisa Avila Neutrophils/100 WBC (Bld) 53.8 % Normal 43.0-75.0 [facility] Comment on above: Performed By: #### C BC #### [facility] [address] [place] [address] Dr. Lisa Avila Platelet mean volume (Bld) [Entitic vol] 9.7 fL Normal 9.5-13.5 [facility] Comment on above: Performed By: #### C BC #### [facility] [address] [place] [address] Dr. Lisa Avila PLT 276 103/ul Normal 150-450 [facility] Comment on above: Performed By: #### C BC #### [facility] [address] [place] [address] Dr. Lisa Avila RBC 3.94 106/ul Critically low 4.20-5.40 [facility] Comment on above: Performed By: #### C BC #### [facility] [address] [address] [address] Lisa Avila WBC 4.6 103/ul Normal 4.0-11.0 [facility] Comment on above: Performed By: #### C BC #### [facility] [address] [address] [address] Lisa Avila LIPID PROFILEon 05-02-2022 CHOL-HDL RATIO NORM SEE BELOW Normal [facility] Comment on above: Result Comment: 3.3 - 4.4 LOW RISK 4.4 - 7.1 AVERAGE RISK 7.1 - 11.0 MODERATE RISK >11.0 HIGH RISK Performed By: #### A LT, LIPID, BMP #### [facility] [address] [place] [address] Dr. Lisa Avila Cholesterol [Mass/Vol] 158 mg/dL Normal <=200 [facility] Comment on above: Performed By: #### A LT, LIPID, BMP #### [facility] [address] [place] [address] Dr. Lisa Avila Cholesterol in HDL [Mass/Vol] 49 mg/dL Normal 40-60 [facility] Comment on above: Performed By: #### A LT, LIPID, BMP #### [facility] [address] [place] [address] Dr. Lisa Avila Cholesterol in LDL [Mass/Vol] 86.8 mg/dL Normal [facility] Comment on above: Performed By: #### A LT, LIPID, BMP #### [facility] [address] [place] [address] Dr. Lisa Avila Cholesterol.total/C holesterol in HDL [Mass ratio] 3.2 {ratio} Normal [facility] Comment on above: Performed By: #### A LT, LIPID, BMP #### [facility] [address] [place] [address] Dr. Lisa Avila HDL NORMAL > or = 60 mg/dl - LO W CARDIOVASCULAR RISK <40 mg/dl - HIGH CARDIOVASCULAR RISK Normal [facility] Comment on above: Performed By: #### A LT, LIPID, BMP #### [facility] [address] [place], [place] [address] Dr. Lisa Avila LDL CALC NORMAL SEE BELOW Normal [facility] Comment on above: Result Comment: <100 mg/dl OPTIMAL 100 - 129 mg/dl NEAR OR ABOVE OPTIMAL 130 - 159 mg/dl BORDERLINE HIGH 160 - 189 mg/dl HIGH >190 mg/dl VERY HIGH Performed By: #### A LT, LIPID, BMP #### [facility] [address] [address] [address] Lisa Avila Triglyceride [Mass/Vol] 111 mg/dL Normal <=150 [facility] Comment on above: Performed By: #### A LT, LIPID, BMP #### [facility] [address] [address] [address] Lisa Avila VLDL CALC 22.2 mg/dL Normal [facility] Comment on above: Performed By: #### A LT, LIPID, BMP #### [facility] [address] [address] [address] Lisa Avila MG MAMM SCREEN 3D ODELL CADon 05-02-2022 MG MAMM SCREEN 3D ODELL CAD Patient: YOLANDE ROMERO Exam Date: 05/02/2022 : 1950 Gender:F Ordering : DR HUY SCHROEDER D.O. Admission #: [id number] Family : Order #: [id number] CLICK HERE TO VIEW EXAM RADIOLOGY REPORT [...] rectal cancer at age 68. LOCATION: [facility] BREAST COMPOSITION: Almost entirely fatty. [...] M.D. on 05/02/2022 at 09:50 Normal [facility] PROF CHEM 8 (BAS METB)on Anion gap [Moles/Vol] 9.9 mmol/L Normal [facility] Comment on above: Performed By: #### A LT, LIPID, BMP #### [facility] [address] [address] [address] Lisa Avila Calcium [Mass/Vol] 9.1 mg/dL Normal 8.5-10.1 [facility] Comment on above: Performed By: #### A LT, LIPID, BMP #### [facility] [address] [place] [address] Dr. Lisa Avila Chloride [Moles/Vol] 101 mmol/L Normal 98-107 [facility] Comment on above: Performed By: #### A LT, LIPID, BMP #### [facility] [address] [place] [address] Dr. Lisa Avila CO2 [Moles/Vol] 30.8 mmol/L Normal 21.0-32.0 [facility] Comment on above: Performed By: #### A LT, LIPID, BMP #### [facility] [address] [place] [address] Dr. Lisa Avila Creatinine [Mass/Vol] 0.62 mg/dL Normal 0.55-1.02 [facility] Comment on above: Performed By: #### A LT, LIPID, BMP #### [facility] [address] [address] [address] Lisa Avila EGFR-AF BANGLADESHI 60 mL/min/1.73m2 Normal >=60 [facility] Comment on above: Performed By: #### A LT, LIPID, BMP #### [facility] [address] [address] [address] Lisa Avila EGFR-NON AF BANGLADESHI 60 mL/min/1.73m2 Normal >=60 [facility] Comment on above: Performed By: #### A LT, LIPID, BMP #### [facility] [address] [address] [address] Lisa Avila Glucose [Mass/Vol] 101 mg/dL Normal 74-106 [facility] Comment on above: Performed By: #### A LT, LIPID, BMP #### [facility] [address] [address] [address] Lisa Avila Potassium [Moles/Vol] 3.7 mmol/L Normal 3.5-5.1 [facility] Comment on above: Performed By: #### A LT, LIPID, BMP #### [facility] [address] [place] [address] Dr. Lisa Avila Sodium [Moles/Vol] 138 mmol/L Normal 136-145 [facility] Comment on above: Performed By: #### A LT, LIPID, BMP #### [facility] [address] [place] [address] Dr. Lisa Avila Urea nitrogen [Mass/Vol] 24.0 mg/dL Critically high 7.0-18.0 [facility] Comment on above: Performed By: #### A LT, LIPID, BMP #### [facility] [address] [place] [address] Dr. Lisa Avila Urea nitrogen/Creatinine [Mass ratio] 38.7 mg/mg Normal [facility] Comment on above: Performed By: #### A LT, LIPID, BMP #### [facility] [address] [place] [address] Dr. Lisa Avila [facility] 05-02-2022 ALT [Catalytic activity/Vol] 33 U/L Normal 14-59 [facility] Comment on above: Performed By: #### A LT, LIPID, BMP #### [facility] [address] [place] [address] Dr. Lisa Avila Vital Signs Date Time Vital Sign Value Performing Clinician Facility 04-20-2024 14:34-0400 Body height 166.37 cm [facility] 04-20-2024 14:34-0400 Body mass index (BMI) [Ratio] 31.6 kg/m2 [facility] 04-20-2024 14:34-0400 Body weight 87.71 kg [facility] 04-20-2024 14:34-0400 Diastolic blood pressure 78 mm[Hg] [facility] 04-20-2024 14:34-0400 Heart rate 94 /min [facility] 04-20-2024 14:34-0400 Respiratory rate 12 /min [facility] 04-20-2024 14:34-0400 Systolic blood pressure 124 mm[Hg] [facility] 01-11-2024 14:07-0400 Body height 166.37 cm [facility] 01-11-2024 14:07-0400 Body mass index (BMI) [Ratio] 32 kg/m2 [facility] 01-11-2024 14:07-0400 Body weight 88.56 kg [facility] 01-11-2024 14:07-0400 Diastolic blood pressure 68 mm[Hg] [facility] 01-11-2024 14:07-0400 Heart rate 84 /min [facility] 01-11-2024 14:07-0400 Respiratory rate 12 /min [facility] 01-11-2024 14:07-0400 Systolic blood pressure 118 mm[Hg] [facility] 10-12-2023 08:30-0500 Body height 166.37 cm Huy Ball Other [facility] Other 10-12-2023 08:30-0500 Body mass index (BMI) [Ratio] 31.82 kg/m2 Huy Ball Other [facility] Other 10-12-2023 08:30-0500 Body weight 88.09 kg Huy Ball Other [facility] Other 10-12-2023 08:30-0500 Diastolic blood pressure 75 mm[Hg] Huy Ball Other [facility] Other 10-12-2023 08:30-0500 Respiratory rate 12 /min Huy Ball Other [facility] Other 10-12-2023 08:30-0500 Systolic blood pressure 132 mm[Hg] [facility] [employer] Other [facility] Other 04-09-2023 08:30-0400 Body height 166.37 cm Huy [employer] Other [facility] Other 04-09-2023 08:30-0400 Body mass index (BMI) [Ratio] 31.69 kg/m2 [facility] [employer] Other [facility] Other 04-09-2023 08:30-0400 Body weight 87.73 kg Huy [employer] Other [facility] Other 04-09-2023 08:30-0400 Diastolic blood pressure 81 mm[Hg] [facility]uy [employer] Other [facility] Other 04-09-2023 08:30-0400 Respiratory rate 12 /min Huy [employer] Other [facility] Other 04-09-2023 08:30-0400 Systolic blood pressure 122 mm[Hg] Huy [employer] Other [facility] Other Encounters Encounter Date Encounter Type Care Provider Facility Start: 04-20-2024 End: 04-20-2024 ambulatory [facility] Work Phone: Start: 04-20-2024 End: 04-20-2024 Patient encounter procedure [facility] Work Phone: Start: 03-24-2024 End: 03-24-2024 ambulatory JEANMARIE Rodney ESTEPHANIA Not Available Start: 01-25-2024 End: 01-25-2024 ambulatory YOLANDE CORNEJO Not Available Start: 01-11-2024 End: 01-11-2024 ambulatory [facility] Work Phone: Start: 01-11-2024 End: 01-11-2024 Patient encounter procedure [facility] Work Phone: Start: 12-24-2023 End: 12-24-2023 ambulatory JEANMARIE S LIEBENTHAL Not Available Start: 10-23-2023 End: 10-23-2023 ambulatory Huy Schroeder Other [facility] Other Start: 10-23-2023 Telephone encounter Huy Schroeder [facility] Start: 10-19-2023 End: 10-19-2023 ambulatory Huy Schroeder Other [facility] Other Start: 10-19-2023 Telephone encounter Huy Schroeder [facility] Start: 10-12-2023 End: 10-12-2023 ambulatory Huy Schroeder Other [facility] Other Start: 10-12-2023 Office outpatient visit 25 minutes Huy Schroeder [facility] Start: 09-24-2023 End: 09-24-2023 ambulatory JEANMARIE S LIEBENTHAL Not Available Start: 05-05-2023 End: 05-05-2023 ambulatory Huy Schroeder Other [facility] Other Start: 05-05-2023 Telephone encounter Huy Schroeder [facility] Start: 05-01-2023 End: 05-01-2023 ambulatory Huy Schroeder Other [facility] Other Start: 05-01-2023 Telephone encounter Huy Schroeder [facility] Start: 04-09-2023 End: 04-09-2023 ambulatory Huy Schroeder Other [facility] Other Start: 04-09-2023 Patient encounter procedure Huy Schroeder [facility] Start: 11-10-2022 End: 11-10-2022 ambulatory Huy Ball Other [facility] Other Start: 11-10-2022 Telephone encounter Huy HAGER Bal Schroeder [facility] Start: 11-03-2022 End: 11-03-2022 ambulatory Huy David Other [facility] Other Start: 11-03-2022 Telephone encounter Huy Schroeder MADAN Schroeder [facility] Start: 05-02-2022 End: 05-03-[address] HUY SCHROEDER Facility:[facility] Start: 07-09-2021 End: 07-09-2021 ambulatory DIANE GARAY Facility:[facility] Plan of Treatment Date Care Activity Detail Author Comprehensive metabo lic 2000 panel - Serum or Plasma [facility] enter MG Breast - bilateral Screening [facility] Immunizations Immunization Date Immunization Notes Care Provider Fa cility 08-11-2022 influenza virus vaccine, unspecified formulation [facility] 08-11-2022 influenza, high dose seasonal, preservative-free Huy David Other [facility] Other 06-13-2021 influenza virus vaccine, split virus (incl. purified surface antigen) Huy Schroeder Other [facility] Other 06-13-2021 influenza virus vaccine, unspecified formulation [facility] 06-06-2020 influenza virus vaccine, split virus (incl. purified surface antigen) Huy Schroeder Other [facility] Other 06-06-2020 influenza virus vaccine, unspecified formulation [facility] 07-06-2018 influenza virus vaccine, split virus (incl. purified surface antigen) Huy David Other [facility] Other 07-06-2018 influenza virus vaccine, unspecified formulation [facility] 06-23-2017 influenza virus vaccine, split virus (incl. purified surface antigen) Huy Schroeder Other [facility] Other 06-23-2017 influenza virus vaccine, unspecified formulation [facility] 06-16-2016 influenza virus vaccine, split virus (incl. purified surface antigen) Huy Schroeder Other [facility] Other 06-16-2016 influenza virus vaccine, unspecified formulation [facility] 08-13-2015 influenza virus vaccine, split virus (incl. purified surface antigen) Huy Schroeder Other [facility] Other 08-13-2015 influenza virus vaccine, unspecified formulation [facility] 08-13-2015 pneumococcal conjuga te vaccine, 13 valent Huy Schroeder Other [facility] 07-17-2014 influenza virus vaccine, split virus (incl. purified surface antigen) Huy Schroeder Other [facility] [employer] [facility] Other 07-17-2014 influenza virus vaccine, unspecified formulation [facility] 06-08-2013 tetanus and diphther ia toxoids, adsorbed, preservative free, for adult use (5 Lf of tetanus toxoid and 2 Lf of diphtheria toxoid) Huy Schroeder Other [facility] Payers Date Payer Category Payer Medicare [id number] 1961 Unknown [id number] 1950 Unknown [id number] 2.16.84 [id number] 1950 Unknown [id number] 2.16.84 [id number] 1950 Unknown [id number] 2.16.84 [id number] 1950 Unknown [id number] 2.16.84 [id number] 1950 Unknown [id number] 2.16.84 [id number] 1950 Unknown [id number] 2.16.84 [id number] Social History Date Type Detail Facility Sex Assigned At [facility] Other Start: 1950 Sex Assigned At Female F [facility] Evaluation note 10-12-2023 Note Date & Type [...] index [BMI] 31.0-31.9, adult (ICD-10 - Z68.31) [facility] Other Evaluation note 05-01-2023 Note Date & Type Note Facility 05-01-2023 Evaluation note Encounter Date Diagnosis Assessment Notes Apr, Essential hypertension (ICD-10 - I10) [facility] Other Evaluation note 04-09-2023 Note Date & [...] mammogram for breast cancer (ICD-10 - Z12.31) [facility] Other Evaluation note 11-10-2022 Note Date & Type Note Facility 11-10-2022 Evaluation note Encounter Date Diagnosis Assessment Notes Oct, Essential hypertension (ICD-10 - I10) [facility] Other Evaluation note Note Date & Type Note Facility Evaluation note No Information [facility] Other Evaluation note Note Date & Type Note Facility Evaluation note Diagnosis Onset Date Elevated cholesterol acute Essential hypertension acute Restless leg syndrome acute Symptomatic PVCs acute [facility] Work Phone: Evaluation note Note Date & Type Note Facility Evaluation note Diagnosis Onset Date Elevated cholesterol acute Essential hypertension acute Restless leg syndrome acute Symptomatic PVCs acute Medicare annual wellness visit, subsequent noneactive [facility] Work Phone: History general Narrative - Reported [...] SPINE FUSION Hospitalization History see surgical history [facility] Other Summary Purpose Family History No Family [...] DATE CREATED AUTHOR AUTHOR'S ORGANIZ ATION 03/30/2024 [facility] EPIC REASON FOR VISIT (unrecogniz [...] BE BASED ON THE PRIMARY CLINICAL RECORDS. [facility]estone [facility]. provides no warranty or guarantee of the accuracy or completeness of information in this document.
[2024-05-12 08:00] LABS: Basophils Percent Auto 0.4 % (0.2-2.0); Eosinophils Absolute Auto 0.2 10^3/uL (0.0-0.7); Eosinophils Percent Auto 3.4 % (0.9-7.0); Hematocrit 35.7 % (36.0-48.0); Hemoglobin 11.9 g/dL (12.0-16.0); Immature Granulocytes Abs Auto 0.03 10^3/uL (0.00-0.03); Immature Granulocytes Pct Auto 0.6 % (0.0-0.5); Lymphocytes Absolute Auto 1.6 10^3/uL (1.2-3.8); Mean Corpuscular HGB Conc 33.3 g/dL (29.9-35.2); Mean Platelet Volume 9.5 fL (9.5-13.5); Monocytes Absolute Auto 0.4 10^3/uL (0.3-0.8); Monocytes Percent Auto 8.3 % (1.7-12.0); Neutrophils Absolute Auto 2.4 10^3/uL (1.4-6.5); Neutrophils Percent Auto 52.3 % (43.0-75.0); Platelet Count 263 10^3/uL (150-450); Red Blood Count 3.84 10^6/uL (4.20-5.40); Red Cell Distribution Width 12.6 % (11.0-15.0); White Blood Count 4.7 10^3/uL (4.0-11.0)
[2024-05-12 08:59] LABS: Alanine Aminotransferase 27 U/L (14-59); Albumin Globulin Ratio 1.2; Albumin Level 3.6 g/dL (3.4-5.0); Alkaline Phosphatase 81 U/L (46-116); Anion Gap 11.6; Aspartate Amino Transferase 17 U/L (15-37); BUN Creatinine Ratio 46.2; Bilirubin Total 0.8 mg/dL (0.2-1.0); Calcium 9.2 mg/dL (8.5-10.1); Carbon Dioxide 28.4 mmol/L (21.0-32.0); Chloride 103 mmol/L (98-107); Chol HDL Ratio 3.4; Cholesterol 145 mg/dL (<=200); Estimated GFR (African America >60 (>=60); Estimated GFR (Non-African Ame >60 (>=60); Globulin 3.1 g/dL; Glucose 100 mg/dL (74-106); HDL Cholesterol 43 mg/dL (40-60); LDL Cholesterol Calculated 72.4 mg/dL; Sodium 139 mmol/L (136-145); Total Protein 6.7 g/dL (6.4-8.2); Triglycerides 148 mg/dL (<=150); VLDL CHOLESTEROL 29.6 mg/dL
== END 2024-05-12 07:45 | disposition home or self-care (01) ==
LOC: LAB 07:46
PROVIDERS: PCP Internal Medicine; Visit Provider Internal Medicine
DX: E78.00 Pure hypercholesterolemia, unspecified (principal); I10 Essential (primary) hypertension; I49.3 Ventricular premature depolarization
CPT/HCPCS: 36415; 80053; 80061; 85025

== ENCOUNTER 2024-10-19 08:07 | Outpatient (OUT) | payer MEDICARE, SELFPAY ==
[2024-10-19 08:26] LABS: Basophils Percent Auto 0.8 % (0.2-2.0); Eosinophils Absolute Auto 0.3 10^3/uL (0.0-0.7); Eosinophils Percent Auto 6.6 % (0.9-7.0); Hematocrit 35.8 % (36.0-48.0); Hemoglobin 12.1 g/dL (12.0-16.0); Immature Granulocytes Abs Auto 0.02 10^3/uL (0.00-0.03); Immature Granulocytes Pct Auto 0.4 % (0.0-0.5); Lymphocytes Absolute Auto 1.4 10^3/uL (1.2-3.8); Mean Corpuscular HGB Conc 33.8 g/dL (29.9-35.2); Mean Corpuscular Hemoglobin 31.9 pg (26.7-34.0); Mean Corpuscular Volume 94.5 fL (81.0-99.0); Monocytes Absolute Auto 0.4 10^3/uL (0.3-0.8); Monocytes Percent Auto 7.3 % (1.7-12.0); Neutrophils Percent Auto 57.9 % (43.0-75.0); Platelet Count 244 10^3/uL (150-450); Red Blood Count 3.79 10^6/uL (4.20-5.40); Red Cell Distribution Width 12.8 % (11.0-15.0); White Blood Count 5.2 10^3/uL (4.0-11.0)
[2024-10-19 09:21] LABS: Percent Iron Saturation 20.3 %
[2024-10-20 07:09] LABS: Vitamin B12 396 pg/mL (232-1245)
== END 2024-10-19 08:08 | disposition home or self-care (01) ==
LOC: LAB 08:08
PROVIDERS: PCP Internal Medicine; Visit Provider Internal Medicine
DX: D64.9 Anemia, unspecified (principal)
CPT/HCPCS: 36415; 82607; 82728; 82746; 83540; 83550; 85025

== ENCOUNTER 2025-05-17 06:56 | Outpatient (OUT) | payer MEDICARE, SELFPAY ==
--- OUTSIDE RECORDS SUMMARY | 2025-05-17 06:58 | XMS_ITS | CCD ---
Author Organization [facility]iniSynm Care Team Providers Care [employer] Maker Name Role Phone DR HUY HERNANDEZ Attending Unavailable DAVID, DR LEDEZMA Consulting Unavailable DAVID, DR LEDEZMA Primary Care Unavailable DAVID, DR LEDEZMA Admitting Unavailable KSENIA, DR MANINDER Burrell Consulting DIANE Juarez Attending Unavailable DIANE GARAY Consulting Unavailable DAVID, DR LEDEZMA Primary Care Unavailable DIANE GARAY Admitting Unavailable Huy Hernandez Huy Hernandez MD Primary Care Provider Huy Hernandez DO Primary Care Provider Huy Hernandez DO Primary Care Provider MANINDER IGNACIO Attending Unavailable YOLANDE CORNEJO Attending Unavailable MANINDER IGNACIO Attending Unavailable JEANMARIE BEST Attending Unavailable MANINDER IGNACIO Attending Unavailable YOLANDE CORNEJO Attending Unavailable Huy Hernandez DO Primary Care Provider Cecile Greenberg APRN Attending Provider Huy Hernandez DO Attending Provider [phone] Allergies Allergy Classification Reported Allergen(s) Allergy Type Date of Onset Reaction(s) Facility (1 source) HYDROmorphone Drug Allergy 017 [facility] Rep[facility] (7 sources) Morphine Drug Allergy 017 Unknown Reaction, Gastrointestinal Upset [facility] (1 source) Sulfonamides (Antibiotic) Drug allergy (disorder) 017 [facility] (20 sources) HYDROmorphone Drug Allergy 024 Unknown, Unknown Reaction, Gastrointestinal Upset [facility] (20 sources) Morphine Drug Allergy 023 Unknown [facility] (6 sources) Triple Sulfonamides *SULFONAMIDES* Propensity to adverse reactions Unknown [facility] Other (13 sources) Sulfonamides (Antibiotic) Drug Allergy 023 Unknown [facility] (3 sources) Sulfonamides (Antibiotic) Allergy to substance 025 Rash [facility] Medications Current Medications Medication Drug Class(es) Dates Sig (Normalized) Sig (Original) aspirin 81 mg delayed release oral tablet (20 sources) Platelet Aggregation Inhibitor, Nonsteroidal Anti-inflammatory Drug Start: 01-08-2024 take 1 tablet by mouth once daily Aspirin 81 mg tablet,delayed release (DR/EC) Active 81 MG PO Daily January 08, 2024 12:00am Complies with drug therapy take 1 tablet by ham th every twenty-four hours Aspirin 81 81 MG 1 tablet Orally Once a day Active atorvastatin 20 mg oral tablet (20 sources) HMG-CoA Reductase Inhibitor Start: 07-17-2024 take 1 tablet by mouth once daily atorvastatin (Lipitor) 20 MG tablet Take 20 mg by mouth Daily 07/17/2024 Active Start: 01-23-2024 End: 01-15-2025 take 1 tablet by mouth once daily in the evening Atorvastatin 20 mg tablet Active 0 .ROUTE .COMPLEX January 15, 2025 3:03pm TAKE ONE TABLET BY MOUTH EVERY EVENING Complies with drug therapy Start: 01-23-2024 take 1 tablet by ham th once daily in the evening Atorvastatin Active 0 .ROUTE .COMPLEX January 23, 2024 8:45am TAKE ONE TABLET BY MOUTH EVERY EVENING Start: 01-08-2024 End: 01-23-2024 take 1 tablet by mouth once daily Atorvastatin 20 mg tablet Discontinued 20 MG PO Daily January 08, 2024 12:00am January 23, 2024 8:45am End: 08-01-2024 atorvastatin (Lipitor) 10 MG tablet Atorvastatin Calcium 08/01/2024 Discontinued (Dose adjustment) take 1 tablet by ham th once daily in the evening Atorvastatin Calcium 20 MG TAKE ONE TABLET BY MOUTH EVERY EVENING Active Calcium (8 sources) Phosphate Binder, Calcium Calcium + D Active hydroCHLOROthiazide 25 mg oral tablet (20 sources) Thiazide Diuretic Start: 2023 take 1 tablet by mouth once daily in the morning Hydrochlorothiazide 25 mg tablet Active 0 .ROUTE .COMPLEX May 04, 2024 5:42pm TAKE 1 TABLET BY MOUTH EVERY MORNING Complies with drug therapy Start: 11-06-2022 End: 05-04-2024 take 1 tablet by mouth once daily in the morning Hydrochlorothiazide 25 mg tablet Discontinued 25 MG PO Every morning November 10, 2023 1:00am May 04, 2024 5:42pm lisinopril 20 mg oral tablet (20 sources) Angiotensin Converting Enzyme Inhibitor Start: 10-30-2024 take 1 tablet by mouth once daily Lisinopril 20 mg tablet Active 0 .ROUTE .COMPLEX October 30, 2024 9:44am TAKE 1 TABLET BY MOUTH DAILY Complies with drug therapy Start: 11-06-2022 End: 10-30-2024 take 1 tablet by mouth once daily Lisinopril 20 mg tablet Discontinued 20 MG PO Daily November 04, 2023 1:00am October 30, 2024 9:44am meclizine hydrochloride 25 mg oral tablet (20 sources) Antiemetic Start: 11-06-2022 take 1 tablet by mouth every six hours as needed Meclizine 25 mg tablet Active 25 MG PO Every 6 hours as needed January 08, 2024 12:00am Complies with drug therapy 24 hr metoprolol succinate 50 mg extended release oral tablet (20 sources) beta-Adrenergic Mary Lou Start: 07-24-2024 take 1 tablet by mouth once daily metoprolol succinate XL (Toprol-XL) 50 MG 24 hr tablet Take 50 mg by mouth Daily 07/24/2024 Active Start: 04-26-2024 End: 04-24-2025 take 1 tablet by mouth once daily Metoprolol Succinate 50 mg tablet extended release 24 hr Active 0 .ROUTE .COMPLEX April 24, 2025 7:47am TAKE 1 TABLET BY MOUTH DAILY Complies with drug therapy Start: 01-08-2024 End: 04-26-2024 take 1 tablet by mouth once daily Metoprolol Succinate 50 mg tablet extended release 24 hr Discontinued 50 MG PO Daily January 08, 2024 12:00am April 26, 2024 12:56pm Start: 05-01-2023 take 1 tablet by ham th every twenty-four hours Metoprolol Succinate ER 50 MG 1 tablet Orally Once a day replacing 25 mg Apr, Active Start: 03-08-2023 End: 08-01-2024 metoprolol succinate XL (Top rol-XL) 25 MG 24 hr tablet 50 mg. 03/08/2023 08/01/2024 Discontinued (Dose adjustment) Start: 11-10-2022 take 1 tablet by ham th every twenty-four hours Metoprolol Succinate ER 25 MG 1 tablet Orally Once a day for 30 days Oct, Active Start: 11-06-2022 take 1 capsule by mo uth once daily Metoprolol Succinate 25 MG 1 capsule Orally Once a day Oct, Active ondansetron 4 mg disintegrating oral tablet (20 sources) Serotonin-3 Receptor Antagonist Start: 11-06-2022 ondansetron ODT (Zofran-ODT) 4 MG disintegrating tablet 11/06/2022 Active potassium chloride 10 meq extended release oral tablet (20 sources) Start: 01-21-2024 End: 01-15-2025 take 1 tablet by mouth once daily Potassium Chloride 10 mEq tablet extended release Active 0 .ROUTE .COMPLEX January 15, 2025 3:03pm TAKE ONE TABLET BY MOUTH DAILY Complies with drug therapy Start: 01-21-2024 take 1 tablet by ham th once daily Potassium Chloride Active 0 .ROUTE .COMPLEX January 21, 2024 3:28pm TAKE ONE TABLET BY MOUTH DAILY Start: 01-26-2023 End: 01-21-2024 take 1 tablet by mouth once daily Potassium Chloride 10 mEq tablet extended release Discontinued 10 MEQ PO Daily January 08, 2024 12:00am January 21, 2024 3:28pm take 1 tablet by ham th every twelve hours Klor-Con 10 10 MEQ 1 tablet with food Orally Twice a day Active prednisoLONE acetate 10 mg/ml ophthalmic suspension (4 sources) Corticosteroid Start: 01-25-2025 prednisoLONE acetate (Pred-Forte) 1 % ophthalmic suspension 01/25/2025 Active rOPINIRole 0.25 mg oral tablet (20 sources) Nonergot Dopamine Agonist Start: 01-21-2024 End: 01-15-2025 take 1 tablet by mouth once daily in the evening Ropinirole 0.25 mg tablet Active 0 .ROUTE .COMPLEX January 15, 2025 3:03pm TAKE ONE TABLET BY MOUTH EVERY EVENING Complies with drug therapy Start: 01-21-2024 take 1 tablet by ham th once daily in the evening Ropinirole Active 0 .ROUTE .COMPLEX January 21, 2024 3:28pm TAKE ONE TABLET BY MOUTH EVERY EVENING Start: 02-24-2023 End: 01-21-2024 take 1 tablet by mouth once daily Ropinirole 0.25 mg tablet Discontinued 0.25 MG PO Daily January 08, 2024 12:00am January 21, 2024 3:28pm Completed/Discontinued Medications Medication Drug Class(es) Dates Sig (Normalized) Sig (Original) azithromycin 250 mg oral tablet (2 sources) Macrolide Antimicrobial Start: 03-20-2025 End: 04-26-2025 Azithromycin 250 mg tablet Discontinued 250 MG PO .COMPLEX 6 March 20, 2025 12:00am April 26, 2025 9:09am 2 tabs on first day followed by 1 tab on days 2-5 predniSONE 10 mg oral tablet (2 sources) Start: 03-20-2025 End: 04-26-2025 Prednisone 10 mg tablet Discontinued 10 MG PO As Directed 18 March 20, 2025 12:00am April 26, 2025 9:09am 1 tab tid w/ food x 3 days, then bid w/ food x 3 days, then qd w/ food x 3 days Problems Active Problems Problem Classification Problem Date Documented Date Episodic/Chronic Acute bronchitis (1 source) Acute infective bronchitis; Translations: [Acute bronchitis due to other specified organisms] 03-20-2025 Episodic Cardiac dysrhythmias (20 sources) Atrial fibrillation; Translations: [Unspecified atrial fibrillation] Chronic Cardiac dysrhythmias (2 sources) Palpitations Episodic Conditions associated with dizziness or vertigo (8 sources) Benign paroxysmal positional vertigo; Translations: [Benign paroxysmal vertigo, bilateral] Episodic Disorders of lipid metabolism (20 sources) Familial hypercholesterolemia; Translations: [Pure hypercholesterolemia] Onset: 05-05-2022 Chronic Essential hypertension (20 sources) Essential (primary) hypertension; Translations: [Essential hypertension] Onset: 05-05-2022 Chronic Comment on above: Holter: PVC, tachyca rdiaStress test: normal images w/o reversible defect - 10/2023Echo: normal LVEF - 10/2023 Fluid and electrolyte disorders (8 sources) Hypokalemia; Translations: [Hypokalemia] Episodic Menopausal disorders (8 sources) Decreased estrogen level; 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 Mycoses (17 sources) Onychomycosis; Translations: [Tinea unguium] Onset: 03-12-2023 03-12-2023 Episodic Neoplasms of unspecified nature or uncertain behavior (2 sources) Neoplastic disease; Translations: [Neoplasm of unspecified behavior of bone, soft tissue, and skin] 08-01-2024 Episodic Nonspecific chest pain (1 source) Precordial pain Episodic Osteoarthritis (8 sources) Localized, primary osteoarthritis of the shoulder region; Translations: [Primary osteoarthritis, right shoulder] Chronic Other aftercare (2 sources) Other exterminator (current) drug therapy; Translations: [OTH SENIOR CARE CURRENT DRUG THERAPY] Onset: 05-05-2022 Episodic Other circulatory disease (2 sources) Spider nevus; Translations: [Nevus, non-neoplastic] 08-01-2024 Episodic Other connective tissue disease (8 sources) Non-traumatic partial tear of right rotator cuff; Translations: [Incomplete rotator cuff tear or rupture of right shoulder, not specified as traumatic] Episodic Other connective tissue disease (8 sources) Pain in toe; Translations: [Pain in right toe(s)] 07-27-2024 Episodic Other hematologic conditions (5 sources) History of anemia; Translations: [Personal history of diseases of the blood and blood-forming organs and certain disorders involving the immune mechanism] 10-24-2024 Episodic Other hereditary and degenerative nervous system conditions (15 sources) Restless legs; Translations: [Restless legs syndrome] 01-09-2024 Chronic Other hereditary and degenerative nervous system conditions (3 sources) Restless legs syndrome; Translations: [Restless legs syndrome (RLS)] 01-11-2024 Chronic Other inflammatory condition of skin (2 sources) Rosacea; Translations: [Other rosacea] 01-30-2025 Chronic Other lower respiratory disease (1 source) Other forms of dyspnea Episodic Other lower respiratory disease (1 source) Wheezing; Translations: [Wheezing] 03-20-2025 Episodic Other non-epithelial cancer of skin (4 sources) History of malignant basal cell neoplasm of skin; Translations: [Personal history of other malignant neoplasm of skin] 08-01-2024 Episodic Other non-traumatic joint disorders (13 sources) Shoulder pain; Translations: [Pain in left shoulder] 01-11-2024 Episodic Other nutritional; endocrine; and metabolic disorders (8 sources) Simple obesity ; Translations: [Other obesity due to excess calories] Chronic Other nutritional; endocrine; and metabolic disorders (12 sources) Obesity; Translations: [Obesity, unspecified] 10-24-2024 Chronic Other nutritional; endocrine; and metabolic disorders [...] conditions (not mental disorders or infectious disease) (11 sources) Encounter for screening mammogram for malignant neoplasm of breast; Translations: [Patient encounter status] Onset: 05-02-2022 Episodic Other skin disorders (4 sources) Dystrophia unguium; Translations: [Nail dystrophy] 07-27-2024 Episodic Other skin disorders (4 sources) Seborrheic keratosis; Translations: [Other seborrheic keratosis] 08-01-2024 Episodic Other skin disorders (4 sources) Lentiginosis; Translations: [Other melanin hyperpigmentation] 08-01-2024 Episodic Other skin disorders (4 sources) Actinic keratosis; Translations: [Actinic keratosis] 08-01-2024 Episodic Other skin disorders (2 sources) Inflamed seborrheic keratosis; Translations: [Inflamed seborrheic keratosis] 08-01-2024 Episodic Other upper respiratory infections (5 sources) Viral upper respiratory tract infection; Translations: [Acute upper respiratory infection, unspecified] 03-14-2025 Episodic Residual codes; unclassified (1 source) Family [...] Translations: [ENCOUNTER FOR IMMUNIZATION] Onset: 07-09-2021 Episodic Other connective tissue disease (13 sources) Tendinitis of right posterior tibial tendon; Translations: [Posterior tibial tendinitis, right leg] Onset: 03-12-2023 03-12-2023 Episodic Results Test Name Value Interpretation Reference Range Facility Influenza virus B Ag [Presen ce] in Upper respiratory specimen by Rapid immunoassayOrdered By: Cecile Greenberg on 03-14-2025 FLUBV Ag IA.rapid Ql (Nph) Negative [facility] No Panel InformationOrdered By: Cecile Greenberg on 03-14-2025 Influenza Type A (Rapid) Negative [facility] POC SARS CoV-2 Antigen Negative [facility] No Panel Informationon 01-30 [facility] Basophils Auto (Bld) [#/Vol] on 10-19-2024 Basophils (Bld) [#/Vol] Automated basophil count 0.0-0.1 [facility] Basophils/100 WBC Auto (Bld) on 10-19-2024 Basophils/100 WBC (Bld) Automated basophil % 0.2-2.0 [facility] Eosinophils/100 WBC Auto (Bl d)on 10-19-2024 Eosinophils/100 WBC (Bld) Automated eosinophil % 0.9-7.0 [facility] Erythrocyte distribution wid th Auto (RBC) [Ratio]on 10-19-2024 Erythrocyte distribution width (RBC) [Ratio] Erythrocyte distribution width [Ratio] by Automated count 11.0-15.0 [facility] Hematocrit Auto (Bld) [Volum e fraction]on 10-19-2024 Hematocrit (Bld) [Volume fraction] Hematocrit [Volume Fraction] of Blood by Automated count Low 36.0-48.0 [facility] Hemoglobin [Mass/volume] in Bloodon 10-19-2024 Hemoglobin (Bld) [Mass/Vol] Hemoglobin [Mass/volume] in Blood 12.0-16.0 [facility] Iron binding capacity [Mass/ volume] in Serum or Plasmaon 10-19-2024 Iron binding capacity [Mass/Vol] Iron binding capacity [Mass/volume] in Serum or Plasma 250.0-450.0 [facility] Iron saturation [Mass Fracti on] in Serum or Plasmaon 10-19-2024 Iron saturation [Mass fraction] Iron saturation [Mass Fraction] in Serum or Plasma [facility] Laboratory - Chemistry and C hemistry - challengeon 10-19-2024 Cobalamin (Vitamin B12) [Mass/Vol] 396 pg/mL [id number] [facility] Comment on above: Performed at: [address] [id number] Director: Rufino Ahn PhD, Phone: [phone] Ferritin [Mass/Vol] 120.0 ng/mL 8.0-252.0 [facility] Iron [Mass/Vol] 66.0 ug/dL 50.0-170.0 [facility] Laboratory - Hematology and Cell countson 10-19-2024 Immature granulocytes/100 WBC (Bld) 0.4 % 0.0-0.5 [facility] Leukocytes [#/volume] correc viridiana for nucleated erythrocytes in Blood by Automated counon 10-19-2024 WBC corrected for nucl RBC Auto (Bld) [#/Vol] Leukocytes [#/volume] corrected for nucleated erythrocytes in Blood by Automated coun 4.0-11.0 [facility] Lymphocytes Auto (Bld) [#/Vo l]on 10-19-2024 Lymphocytes (Bld) [#/Vol] Lymphocytes [#/volume] in Blood by Automated count 1.2-3.8 [facility] Lymphocytes/100 WBC Auto (Bl d)on 10-19-2024 Lymphocytes/100 WBC (Bld) Lymphocytes/100 leukocytes in Blood by Automated count 20.5-60.0 [facility] MCH Auto (RBC) [Entitic mass ]on 10-19-2024 MCH (RBC) [Entitic mass] MCH [Entitic mass] by Automated count 26.7-34.0 [facility] MCHC Auto (RBC) [Mass/Vol]on 10-19-2024 MCHC (RBC) [Mass/Vol] MCHC [Mass/volume] by Automated count 29.9-35.2 [facility] MCV Auto (RBC) [Entitic vol] on 10-19-2024 MCV (RBC) [Entitic vol] MCV [Entitic volume] by Automated count 81.0-99.0 [facility] Monocytes Auto (Bld) [#/Vol] on 10-19-2024 Monocytes (Bld) [#/Vol] Automated blood monocyte count 0.3-0.8 [facility] Monocytes/100 WBC Auto (Bld) on 10-19-2024 Monocytes/100 WBC (Bld) Automated monocyte % 1.7-12.0 [facility] Neutrophils Auto (Bld) [#/Vo l]on 10-19-2024 Neutrophils (Bld) [#/Vol] Neutrophils [#/volume] in Blood by Automated count 1.4-6.5 [facility] Neutrophils/100 WBC Auto (Bl d)on 10-19-2024 Neutrophils/100 WBC (Bld) Automated neutrophil % 43.0-75.0 [facility] No Panel Informationon 10-19 Eosinophils # (Auto) 0.3 10 3/uL 0.0-0.7 [facility] Folate 16.50 ng/mL 8.60-58.90 [facility] Immature Granulocyte # (Auto) 0.02 10 3/uL 0.00-0.03 [facility] Platelet mean volume Auto (B ld) [Entitic vol]on 10-19-2024 Platelet mean volume (Bld) [Entitic vol] Platelet mean volume [Entitic volume] in Blood by Automated count 9.5-13.5 [facility] Platelets Auto (Bld) [#/Vol] on 10-19-2024 Platelets (Bld) [#/Vol] Platelets [#/volume] in Blood by Automated count 150-450 [facility] RBC Auto (Bld) [#/Vol]on RBC (Bld) [#/Vol] Erythrocytes [#/volume] in Blood by Automated count Low 4.20-5.40 [facility] Laboratory - Specimen inform ationon 08-04-2024 Specimen type Nom (Spec) ---- SPECIMEN: LT MALAR CHEEK ---- [facility] No Panel Informationon 08-04 CPT 44353*1 [facility] Final Diagnosis INTRADERMAL NEVUS. [facility] Gross Text [facility] ICD10 Code D23.39 [facility] Microscopic Description Microscopic examination performed. [facility] PROTOCOL F - FLAT [facility] No Panel Informationon 08-01 [facility] Type of biopsy: tangential Informed consent: discussed and consent obtained Informed consent comment: The risks and benefits of the biopsy were discussed. Risks include but are not limited to bleeding, infection, scarring, pain, and nerve damage. An opportunity to ask questions prior to the procedure was permitted and all questions were answered. Patient was prepped and draped in usual sterile fashion: area cleansed with alcohol. Anesthesia: the lesion was anesthetized in a standard fashion Anesthetic: 1% lidocaine w/ epinephrine 1-100,000 buffered w/ 8.4% NaHCO3 Instrument used: DermaBlade Hemostasis achieved with: electrodesiccation Outcome: patient tolerated procedure well Outcome comment: The specimen was placed in a prelabeled formalin container to be sent for pathology Post-procedure details: sterile dressing applied and wound care instructions given Post-procedure details comment: Emphasized need to contact clinic for any signs of infection, uncontrollable bleeding, or complications. Dressing type: bandage Additional details: Photo taken. Amount of lidocaine used: 0.4cc [facility] CBC AUTO DIFFon 05-02-2022 BASO # 0.0 103/ul Normal 0.0-0.1 [facility] Comment on above: Performed By: #### C BC #### [facility] [address] [place] [address] Dr. Lisa Avila Basophils/100 WBC (Bld) 0.9 % Normal 0.2-2.0 [facility] Comment on above: Performed By: #### C BC #### [facility] [address] [place] [address] Dr. Lisa Avila EO # 0.2 103/ul Normal 0.0-0.7 [facility] Comment on above: Performed By: #### C BC #### [facility] [address] [place] [address] Dr. Lisa Avila Eosinophils/100 WBC (Bld) 4.1 % Normal 0.9-7.0 [facility] Comment on above: Performed By: #### C BC #### [facility] [address] [place] [address] Dr. Lisa Avila Erythrocyte distribution width (RBC) [Ratio] 12.5 % Normal 11.0-15.0 [facility] Comment on above: Performed By: #### C BC #### [facility] [address] [place] [address] Dr. Lisa Avila Hematocrit (Bld) [Volume fraction] 37.0 % Normal 36.0-48.0 [facility] Comment on above: Performed By: #### C BC #### [facility] [address] [place] [address] Dr. Lisa Avila Hemoglobin (Bld) [Mass/Vol] 12.3 g/dL Normal 12.0-16.0 [facility] Comment on above: Performed By: #### C BC #### [facility] [address] [place] [address] Dr. Lisa Avila IG # 0.01 10e3/ul Normal 0.00-0.03 [facility] Comment on above: Performed By: #### C BC #### [facility] [address] [place] [address] Dr. Lisa Avila IG % 0.2 % Normal 0.0-0.5 [facility] Comment on above: Performed By: #### C BC #### [facility] [address] [place] [address] Dr. Lisa Avila LYMPH # 1.6 103/ul Normal 1.2-3.8 [facility] Comment on above: Performed By: #### C BC #### [facility] [address] [place] [address] Dr. Lisa Avila Lymphocytes/100 WBC (Bld) 33.6 % Normal 20.5-60.0 [facility] Comment on above: Performed By: #### C BC #### [facility] [address] [place] [address] Dr. Lisa Avila MANUAL DIFF REQ NO Normal [facility] Comment on above: Performed By: #### C BC #### [facility] [address] [place] [address] Dr. Lisa Avila MCH (RBC) [Entitic mass] 31.2 pg Normal 26.7-34.0 [facility] Comment on above: Performed By: #### C BC #### [facility] [address] [place] [address] Dr. Lisa Avila MCHC (RBC) [Mass/Vol] 33.2 g/dL Normal 29.9-35.2 [facility] Comment on above: Performed By: #### C BC #### [facility] [address] [place] [address] Dr. Lisa Avila MCV (RBC) [Entitic vol] 93.9 fL Normal 81.0-99.0 [facility] Comment on above: Performed By: #### C BC #### [facility] [address] [place] [address] Dr. Lisa Avila MONO # 0.3 103/ul Normal 0.3-0.8 [facility] Comment on above: Performed By: #### C BC #### [facility] [address] [place] [address] Dr. Lisa Avila Monocytes/100 WBC (Bld) 7.4 % Normal 1.7-12.0 [facility] Comment on above: Performed By: #### C BC #### [facility] [address] [place] [address] Dr. Lias Avila NEUT # 2.5 103/ul Normal 1.4-6.5 [facility] Comment on above: Performed By: #### C BC #### [facility] [address] [place] [address] Dr. Lisa Avila Neutrophils/100 WBC (Bld) 53.8 % Normal 43.0-75.0 [facility] [facility] Comment on above: Performed By: #### C BC #### [facility] [address] [address] [address] Lisa Avila Platelet mean volume (Bld) [Entitic vol] 9.7 fL Normal 9.5-13.5 [facility] Comment on above: Performed By: #### C BC #### [facility] [address] [address] [address] Lisa Avila PLT 276 103/ul Normal 150-450 [facility] Comment on above: Performed By: #### C BC #### [facility] [address] [address] [address] Lisa Avila RBC 3.94 106/ul Critically low 4.20-5.40 [facility] Comment on above: Performed By: #### C BC #### [facility] [address] [address] [address] Lisa Avila WBC 4.6 103/ul Normal 4.0-11.0 [facility] Comment on above: Performed By: #### C BC #### [facility] [address] [address] [address] Lisa Avila LIPID PROFILEon 05-02-2022 CHOL-HDL RATIO NORM SEE BELOW Normal [facility] Comment on above: Result Comment: 3.3 - 4.4 LOW RISK 4.4 - 7.1 AVERAGE RISK 7.1 - 11.0 MODERATE RISK >11.0 HIGH RISK Performed By: #### A LT, LIPID, BMP #### [facility] [address] [address] [address] Lisa Avila Cholesterol [Mass/Vol] 158 mg/dL Normal <=200 [facility] Comment on above: Performed By: #### A LT, LIPID, BMP #### [facility] [address] [address] [address] Lisa Avila Cholesterol in HDL [Mass/Vol] 49 mg/dL Normal 40-60 [facility] Comment on above: Performed By: #### A LT, LIPID, BMP #### [facility] [address] [place] [address] Dr. Lisa Avila Cholesterol in LDL [Mass/Vol] 86.8 mg/dL Normal [facility] Comment on above: Performed By: #### A LT, LIPID, BMP #### [facility] [address] [address] [address] Lisa Avila Cholesterol.total/Chol esterol in HDL [Mass ratio] 3.2 {ratio} Normal [facility] Comment on above: Performed By: #### A LT, LIPID, BMP #### [facility] [address] [address] [address] Lisa Avila HDL NORMAL > or = 60 mg/dl - LO W CARDIOVASCULAR RISK <40 mg/dl - HIGH CARDIOVASCULAR RISK Normal [facility] Comment on above: Performed By: #### A LT, LIPID, BMP #### [facility] [address] [address] [address] Lisa Avila LDL CALC NORMAL SEE BELOW Normal [facility] Comment on above: Result Comment: <100 mg/dl OPTIMAL 100 - 129 mg/dl NEAR OR ABOVE OPTIMAL 130 - 159 mg/dl BORDERLINE HIGH 160 - 189 mg/dl HIGH >190 mg/dl VERY HIGH Performed By: #### A LT, LIPID, BMP #### [facility] [address] [address] [address] Lisa Avila Triglyceride [Mass/Vol] 111 mg/dL Normal <=150 [facility] Comment on above: Performed By: #### A LT, LIPID, BMP #### [facility] [address] [address] [address] Lisa Avila VLDL CALC 22.2 mg/dL Normal [facility] Comment on above: Performed By: #### A LT, LIPID, BMP #### [facility] [address] [address] [address] Lisa Avila MG MAMM SCREEN 3D ODELL CADon 05-02-2022 MG MAMM SCREEN 3D ODELL CAD Patient: YOLANDE ROMERO Exam Date: 05/02/2022 : 1950 Gender:F Ordering : DR HUY HERNANDEZ D.O. Admission #: [id number] Family : Order #: [id number] CLICK HERE TO VIEW EXAM RADIOLOGY REPORT [...] rectal cancer at age 68. LOCATION: [facility] BREAST COMPOSITION: Almost entirely fatty. [...] Yarbrough M.D. on 05/02/2022 at 09:50 Normal [facility] PROF CHEM 8 (BAS METB)on Anion gap [Moles/Vol] 9.9 mmol/L Normal [facility] Comment on above: Performed By: #### A LT, LIPID, BMP #### [facility] [address] [address] [address] Lisa Avila Calcium [Mass/Vol] 9.1 mg/dL Normal 8.5-10.1 [facility] Comment on above: Performed By: #### A LT, LIPID, BMP #### [facility] [address] [address] [address] Lisa Avila Chloride [Moles/Vol] 101 mmol/L Normal 98-107 [facility] Comment on above: Performed By: #### A LT, LIPID, BMP #### [facility] [address] [address] [address] Lisa Avila CO2 [Moles/Vol] 30.8 mmol/L Normal 21.0-32.0 [facility] Comment on above: Performed By: #### A LT, LIPID, BMP #### [facility] [address] [address] [address] Lisa Avila Creatinine [Mass/Vol] 0.62 mg/dL Normal 0.55-1.02 [facility] Comment on above: Performed By: #### A LT, LIPID, BMP #### [facility] [address] [place] [address] Dr. Lisa Avila EGFR-AF CITIZ[place] 60 mL/min/1.73m2 Normal >=60 [facility] Comment on above: Performed By: #### A LT, LIPID, BMP #### [facility] [address] [place] [address] Dr. Lisa Avila EGFR-NON AF CITIZEN [place] 60 mL/min/1.73m2 Normal >=60 [facility] Comment on above: Performed By: #### A LT, LIPID, BMP #### [facility] [address] [place] [address] Dr. Lisa Avila Glucose [Mass/Vol] 101 mg/dL Normal 74-106 [facility] Comment on above: Performed By: #### A LT, LIPID, BMP #### [facility] [address] [place] [address] Dr. Lisa Avila Potassium [Moles/Vol] 3.7 mmol/L Normal 3.5-5.1 [facility] Comment on above: Performed By: #### A LT, LIPID, BMP #### [facility] [address] [place] [address] Dr. Lisa Avila Sodium [Moles/Vol] 138 mmol/L Normal 136-145 [facility] Comment on above: Performed By: #### A LT, LIPID, BMP #### [facility] [address] [place] [address] Dr. Lisa Avila Urea nitrogen [Mass/Vol] 24.0 mg/dL Critically high 7.0-18.0 [facility] Comment on above: Performed By: #### A LT, LIPID, BMP #### [facility] [address] [place] [address] Dr. Lisa Avila Urea nitrogen/Creatinine [Mass ratio] 38.7 mg/mg Normal [facility] Comment on above: Performed By: #### A LT, LIPID, BMP #### [facility] [address] [place] [address] Dr. Lisa Avila [facility] 05-02-2022 ALT [Catalytic activity/Vol] 33 U/L Normal 14-59 [facility] Comment on above: Performed By: #### A LT, LIPID, BMP #### [facility] [address] [address] [address] Lisa Avila Vital Signs Date Time Vital Sign Value Performing Clinician Facility 04-26-2025 09:09-0400 Body height 166.37 cm Huy Ball DO Work Phone: [facility] 04-26-2025 09:09-0400 Body mass index (BMI) [Ratio] 31.1 kg/m2 Huy Ball DO Work Phone: [facility] 04-26-2025 09:09-0400 Body weight 86.23 kg Huy Ball DO Work Phone: [facility] 04-26-2025 09:09-0400 Diastolic blood pressure 75 mm[Hg] Huy Ball DO Work Phone: [facility] 04-26-2025 09:09-0400 Heart rate 93 /min Huy Ball DO Work Phone: [facility] 04-26-2025 09:09-0400 Respiratory rate 12 /min Huy Ball DO Work Phone: [facility] 04-26-2025 09:09-0400 Systolic blood pressure 123 mm[Hg] Huy Ball DO Work Phone: [facility] 03-20-2025 10:49-0400 Body height 166.37 cm Huy Ball DO Work Phone: [facility] 03-20-2025 10:49-0400 Body mass index (BMI) [Ratio] 30.4 kg/m2 Huy Ball DO Work Phone: [facility] 03-20-2025 10:49-0400 Body weight 84.36 kg Huy Ball DO Work Phone: [facility] 03-20-2025 10:49-0400 Diastolic blood pressure 72 mm[Hg] Huy Ball DO Work Phone: [facility] 03-20-2025 10:49-0400 Heart rate 89 /min Huy Ball DO Work Phone: [facility] 03-20-2025 10:49-0400 Respiratory rate 12 /min Huy Ball DO Work Phone: [facility] 03-20-2025 10:49-0400 Systolic blood pressure 136 mm[Hg] Huy Ball DO Work Phone: [facility] 03-14-2025 13:59-0400 Body height 166.37 cm Huy Ball DO Work Phone: [facility] 03-14-2025 13:59-0400 Body mass index (BMI) [Ratio] 30.9 kg/m2 Huy Ball DO Work Phone: [facility] 03-14-2025 13:59-0400 Body temperature 98.8 [degF] Huy Ball DO Work Phone: [facility] 03-14-2025 13:59-0400 Body weight 85.72 kg Huy Ball DO Work Phone: [facility] 03-14-2025 13:59-0400 Diastolic blood pressure 61 mm[Hg] Huy Ball DO Work Phone: [facility] 03-14-2025 13:59-0400 Heart rate 78 /min Huy Ball DO Work Phone: [facility] 03-14-2025 13:59-0400 Respiratory rate 16 /min Huy Ball DO Work Phone: [facility] 03-14-2025 13:59-0400 SaO2% (BldA) [Mass fraction] 95 % Huy Ball DO Work Phone: [facility] 03-14-2025 13:59-0400 Systolic blood pressure 131 mm[Hg] Huy Ball DO Work Phone: [facility] 03-02-2025 09:47-0400 Body height 166.4 cm Maninder Rusher DPM Work Phone: [facility] 03-02-2025 09:47-0400 Body mass index (BMI) [Ratio] 29.5 kg/m2 Maninder Ignacio DPM Work Phone: [facility] 03-02-2025 09:47-0400 Body weight 81.65 kg Maninder Ignacio DPM Work Phone: [facility] 10-24-2024 09:03-0500 Body height 166.37 cm [facility] 10-24-2024 09:03-0500 Body mass index (BMI) [Ratio] 31.6 kg/m2 [facility] 10-24-2024 09:03-0500 Body weight 87.65 kg [facility] 10-24-2024 09:03-0500 Diastolic blood pressure 85 mm[Hg] [facility] 10-24-2024 09:03-0500 Heart rate 90 /min [facility] 10-24-2024 09:03-0500 Respiratory rate 12 /min [facility] 10-24-2024 09:03-0500 Systolic blood pressure 135 mm[Hg] [facility] 07-27-2024 09:53-0500 Body height 166.4 cm Maninder Ignacio DPM Work Phone: [facility] 07-27-2024 09:53-0500 Body mass index (BMI) [Ratio] 29.5 kg/m2 Maninder Ignacio DPM Work Phone: [facility] 07-27-2024 09:53-0500 Body weight 81.65 kg Maninder Ignacio DPM Work Phone: [facility] 04-20-2024 14:34-0400 Body height 166.37 cm [facility] 04-20-2024 14:34-0400 Body mass index (BMI) [Ratio] 31.6 kg/m2 [facility] 04-20-2024 14:34-0400 Body weight 87.71 kg [facility] 04-20-2024 14:34-0400 Diastolic blood pressure 78 mm[Hg] [facility] 04-20-2024 14:34-0400 Heart rate 94 /min [facility] 04-20-2024 14:34-0400 Respiratory rate 12 /min [facility] 04-20-2024 14:34-0400 Systolic blood pressure 124 mm[Hg] [facility] 01-11-2024 14:07-0400 Body height 166.37 cm [facility] 01-11-2024 14:07-0400 Body mass index (BMI) [Ratio] 32 kg/m2 [facility] 01-11-2024 14:07-0400 Body weight 88.56 kg [facility] 01-11-2024 14:07-0400 Diastolic blood pressure 68 mm[Hg] [facility] 01-11-2024 14:07-0400 Heart rate 84 /min [facility] 01-11-2024 14:07-0400 Respiratory rate 12 /min [facility] 01-11-2024 14:07-0400 Systolic blood pressure 118 mm[Hg] [facility] 10-12-2023 08:30-0500 Body height 166.37 cm Huy Ball Other [facility] [employer] Other 10-12-2023 08:30-0500 Body mass index (BMI) [Ratio] 31.82 kg/m2 Huy Ball Other [facility] [employer] Other 10-12-2023 08:30-0500 Body weight 88.09 kg Huy Ball Other [facility] [employer] Other 10-12-2023 08:30-0500 Diastolic blood pressure 75 mm[Hg] Huy Ball Other [facility] [employer] Other 10-12-2023 08:30-0500 Respiratory rate 12 /min Huy Ball Other [facility] [employer] Other 10-12-2023 08:30-0500 Systolic blood pressure 132 mm[Hg] Huy Ball Other [employer] Other 04-09-2023 08:30-0400 Body height 166.37 cm Huy Ball Other [employer] Other 04-09-2023 08:30-0400 Body mass index (BMI) [Ratio] 31.69 kg/m2 Huy Ball Other [employer] Other 04-09-2023 08:30-0400 Body weight 87.73 kg Huy Ball Other [employer] Other 04-09-2023 08:30-0400 Diastolic blood pressure 81 mm[Hg] Huy Ball Other [employer] Other 04-09-2023 08:30-0400 Respiratory rate 12 /min Huy Ball Other [employer] Other 04-09-2023 08:30-0400 Systolic blood pressure 122 mm[Hg] Huy Ball Other [employer] Other Encounters Encounter Date Encounter Type Care Provider Facility Start: 04-26-2025 End: 04-26-2025 ambulatory Huy Ball DO Work Phone: [facility] Work Phone: Start: 04-26-2025 End: 04-26-2025 Patient encounter procedure Huy Ball DO -[facility] Work Phone: Start: 03-20-2025 End: 03-20-2025 ambulatory Huy Ball DO Work Phone: [facility] Work Phone: Start: 03-20-2025 End: 03-20-2025 Patient encounter procedure Huy Ball DO -[facility] Work Phone: Start: 03-14-2025 End: 03-14-2025 ambulatory Huy Ball DO Work Phone: [facility] Work Phone: Start: 03-14-2025 End: 03-14-2025 Patient encounter procedure Cecile Caraballo C[facility] MODEL[facility] -[facility] Work Phone: Start: 03-02-2025 End: 03-02-2025 Bamboo flowsheet Maninder Ignacio DPM Work Phone: [facility] Start: 03-02-2025 End: 03-02-2025 Bamboo flowsheet Maninder Ignacio DPM Work Phone: [facility] Start: 03-02-2025 End: 03-02-2025 Patient encounter procedure Maninder Ignacio DPM Work Phone: [facility] Comment on above: Dermatophytosis of n ail (Primary Dx); Dystrophic nail; Pain around toenail, right foot; Pain around toenail, left foot Start: 03-02-2025 End: 03-02-2025 ambulatory MANINDER IGNACIO Not Available Start: 01-30-2025 End: 01-30-2025 Bamboo flowsheet Yolande Cornejo MD Work Phone: [facility] Start: 01-30-2025 End: 01-30-2025 Bamboo flowsheet Yolande Cornejo MD Work Phone: [facility] Start: 01-30-2025 End: 01-30-2025 Office outpatient visit 15 minutes Yolande Cornejo MD Work Phone: [facility] Comment on above: Seborrheic keratosis (Primary Dx); Lentigines; Other rosacea; History of basal cell carcinoma; History of nevus excision; Actinic keratosis Start: 01-30-2025 End: 01-30-2025 ambulatory YOLANDE CORNEJO Not Available Start: 11-03-2024 End: 11-03-2024 Bamboo flowsheet Maninder Ignacio DPM Work Phone: [facility] Start: 11-03-2024 End: 11-03-2024 Bamboo flowsheet Maninder Ignacio DPM Work Phone: [facility] Start: 11-03-2024 End: 11-03-2024 ambulatory MANINDER IGNACIO Not Available Start: 11-03-2024 End: 11-03-2024 Patient encounter procedure Maninder Ignacio DPM Work Phone: [facility] Comment on above: Dermatophytosis of n ail (Primary Dx); Dystrophic nail; Pain around toenail, right foot; Pain around toenail, left foot Start: 10-24-2024 End: 10-24-2024 ambulatory [facility] Work Phone: Start: 10-24-2024 End: 10-24-2024 Patient encounter procedure [facility] Work Phone: Start: 10-19-2024 Non-patient / Non-visit [facility] Work Phone: Start: 08-01-2024 End: 08-01-2024 Bamboo flowsheet Yolande Cornejo MD Work Phone: [facility] Start: 08-01-2024 End: 08-01-2024 Bamboo flowshelena Cornejo MD Work Phone: [facility] Start: 08-01-2024 End: 08-01-2024 ambulatory YOLANDE CORNEJO Not Available Start: 08-01-2024 End: 08-01-2024 Office outpatient visit 15 minutes Yolande Cornejo MD Work Phone: [facility] Comment on above: Seborrheic keratosis (Primary Dx); History of basal cell carcinoma; Lentigines; Actinic keratosis; Neoplasm of unspecified behavior of bone, soft tissue, and skin; Seborrheic keratosis, inflamed; Capillary angioma Start: 07-27-2024 End: 07-27-2024 Bamboo flowshelena Ignacio DPM Work Phone: [facility] Start: 07-27-2024 End: 07-27-2024 Bamboo flowsheet Maninder Ignacio DPM Work Phone: [facility] Start: 07-27-2024 End: 07-27-2024 ambulatory MANINDER IGNACIO Not Available Start: 07-27-2024 End: 07-27-2024 Patient encounter procedure Maninder Ignacio DPM Work Phone: [facility] Comment on above: Dermatophytosis of n ail (Primary Dx); Dystrophic nail; Pain around toenail, right foot; Pain around toenail, left foot Start: 04-20-2024 End: 04-20-2024 ambulatory [facility] Work Phone: Start: 04-20-2024 End: 04-20-2024 Patient encounter procedure [facility] Work Phone: Start: 03-24-2024 End: 03-24-2024 ambulatory JEANMARIE GUNTERNAZANIN Not Available Start: 01-11-2024 End: 01-11-2024 ambulatory [facility] Work Phone: Start: 01-11-2024 End: 01-11-2024 Patient encounter procedure [facility] Work Phone: Start: 10-23-2023 End: 10-23-2023 ambulatory Huy Hernandez Other [employer] Other Start: 10-23-2023 Telephone encounter Huy Hernandez [facility] Start: 10-19-2023 End: 10-19-2023 ambulatory Huy Hernandez Other [employer] Other Start: 10-19-2023 Telephone encounter Huy Hernandez MAD[facility] Start: 10-12-2023 End: 10-12-2023 ambulatory Huy Hernandez Other [employer] Other Start: 10-12-2023 Office outpatient vi sit 25 minutes Huy Hernandez [facility] Start: 05-05-2023 End: 05-05-2023 ambulatory Huy Hernandez Other [employer] Other Start: 05-05-2023 Telephone encounter Huy Hernandez [facility] Start: 05-01-2023 End: 05-01-2023 ambulatory Huy Hernandez Other [employer] Other Start: 05-01-2023 Telephone encounter Huy Hernandez [facility] Start: 04-09-2023 End: 04-09-2023 ambulatory Huy Hernandez Other [employer] Other Start: 04-09-2023 Patient encounter procedure Huy Hernandez [facility] Start: 11-10-2022 End: 11-10-2022 ambulatory Huy Hernandez Other [employer] Other Start: 11-10-2022 Telephone encounter Huy Hernandez [facility] Start: 11-03-2022 End: 11-03-2022 ambulatory Huy Hernandez Other [employer] Other Start: 11-03-2022 Telephone encounter Huy Hernandez [facility] Start: 05-02-2022 End: 05-03-[address] HUY HERNANDEZ Facility:[facility] Start: 07-09-2021 End: 07-09-2021 ambulatory DIANE GARAY Facility:[facility] Procedures Date Procedure Procedure Detail Performing Clinician Start: 01-30-2025 CRYOTHERAPY SKIN LESION Yolande Cornejo MD Work Phone: Start: 08-01-2024 SKIN / NAIL BIOPSY Jose Cornejo MD Work Phone: Start: 08-01-2024 End: 08-01-2024 CRYOTHERAPY SKIN LESION Yolande Cornejo MD Work Phone: Start: 08-01-2024 Level i surg patholo gy gross examination only Yolande Cornejo MD Work Phone: H/O: surgery History of nevus excision Yolande Cornejo MD Work Phone: Plan of Treatment Date Care Activity Detail Author Start: 08-02-2025 End: 08-02-2025 Patient encounter procedure 08/02/2025 10:35 AM EST Office Visit [facility] [address] [place] [id number] Yolande Cornejo MD [address] [place] [address] [facility] Start: 06-08-2025 End: 06-08-2025 Patient encounter procedure 06/08/2025 9:45 AM EDT Procedure Visit [facility] [address] [place] [address] Maninder Ignacio DPM [address] [place] [address] [facility] Start: 03-02-2025 End: 03-02-2025 Patient encounter procedure 03/02/2025 9:45 AM EDT Procedure Visit [facility] [address] [place] [address] Maninder Ignacio DPM [address] [place] [address] Arrived [facility] Comment on above: Arrived Start: 02-07-2025 End: 02-07-2025 Patient encounter procedure 02/07/2025 1:30 PM EDT Procedure Visit [facility] [address] [place] [address] Maninder Ignacio DPM [address] [place] [address] [facility] Start: 02-02-2025 End: 02-02-2025 Patient encounter procedure 02/02/2025 9:30 AM EDT Procedure Visit [facility] [address] [place] [phone] Maninder Ignacio DPM [address] [place] [address] [facility] Start: 01-30-2025 End: 01-30-[address] [facility] Comment on above: Arrived Start: 11-03-2024 End: 11-03-2024 Patient encounter procedure 11/03/2024 8:30 AM EST Procedure Visit [facility] [address] [place] [phone] Maninder Ignacio DPM [address] [place], [place] [id number] [facility] Start: 05-15-2024 Influenza vaccination Influenza Vacc ine (#1) [facility] Start: 08-13-2016 Pneumococcal Vaccine : 65+ Years (2 of 2 - PPSV23 or PCV20) Pneumococcal Vaccine: 65+ Years (2 of 2 - PPSV23 or PCV20) [facility] Start: 2013 Pneumococcal Vaccine : 65+ Years (1 of 1 - PCV) Pneumococcal Vaccine: 65+ Years (1 of 1 - PCV) [facility] Start: 1998 Pneumococcal Vaccine : 65+ Years (1 of 1 - PCV) Pneumococcal Vaccine: 65+ Years (1 of 1 - PCV) [facility] metabo lic 1999 panel - Serum or Plasma [facility] metabo lic 1999 panel - Serum or Plasma [facility] MG Breast - bilatera l Screening [facility] MG Breast - bilatera l Screening [facility] Immunizations Immunization Date Immunization Notes Care Provider Fa cility 10-24-2024 influenza, high dose seasonal, preservative-free [facility] 10-24-2024 influenza virus vaccine, unspecified formulation Maninder Ignacio DPM Work Phone: [facility] 10-04-2023 influenza virus vaccine, unspecified formulation Maninder Ignacio DP Work Phone: [facility] 08-11-2022 influenza virus vaccine, unspecified formulation [facility] 08-11-2022 influenza, high dose seasonal, preservative-free Huy Hernandez Other [facility] [employer] Other 06-13-2021 influenza virus vaccine, split virus (incl. purified surface antigen) Huy Hernandez Other [facility] [employer] Other 06-13-2021 influenza virus vaccine, unspecified formulation [facility] 06-06-2020 influenza virus vaccine, split virus (incl. purified surface antigen) Huy Hernandez Other [facility] [employer] Other 06-06-2020 influenza virus vaccine, unspecified formulation [facility] 07-06-2018 influenza virus vaccine, split virus (incl. purified surface antigen) Huy Hernandez Other [facility] [employer] Other 07-06-2018 influenza virus vaccine, unspecified formulation [facility] 06-23-2017 influenza virus vaccine, split virus (incl. purified surface antigen) Huy Hernandez Other [facility] [employer] Other 06-23-2017 influenza virus vaccine, unspecified formulation [facility] 06-16-2016 influenza virus vaccine, split virus (incl. purified surface antigen) Huy Hernandez Other [facility] [employer] Other 06-16-2016 influenza virus vaccine, unspecified formulation [facility] 08-13-2015 influenza virus vaccine, split virus (incl. purified surface antigen) Huy Hernandez Other [facility] [employer] Other 08-13-2015 influenza virus vaccine, unspecified formulation [facility] 08-13-2015 pneumococcal conjuga te vaccine, 13 valent Huy Hernandez Other [facility] 07-17-2014 influenza virus vaccine, split virus (incl. purified surface antigen) Huy David Other [employer] Other 07-17-2014 influenza virus vaccine, unspecified formulation [facility] 06-08-2013 tetanus and diphther ia toxoids, adsorbed, preservative free, for adult use (5 Lf of tetanus toxoid and 2 Lf of diphtheria toxoid) Huy Hernandez Other [facility] Payers Date Payer Category Payer Private Health Insurance [employer] Or mber [id number] 2013 Medicare MEDICARE [id number] 1959 Medicare [id number] 1961 Unknown [id number] 1950 Unknown [id number] 1948 Unknown [id number] 1948 Unknown [id number] 1948 Unknown [id number] 1948 Unknown [id number] 1948 Unknown [id number] 1948 Unknown [id number] 1950 Unknown [id number] Social History Date Type Detail Facility Start: 07-27-2024 End: 03-02-2025 Sex Assigned At [facility] [employer] Other Start: 1950 Sex Assigned At Female F [facility] Start: 03-05-2023 End: 03-14-2025 Tobacco smoking status SCIS Never smoked tobacco [facility] Work Phone: Start: 03-05-2023 Tobacco use and exposure Smokeless tobacco non-user [facility] Start: 07-27-2024 End: 03-02-2025 Alcoholic beverage intake Current drinker of alcohol (finding) [facility] Start: 07-27-2024 End: 03-02-2025 History of Social function [facility] Start: 03-17-2023 Alcohol Comment 2-3 drinks, mo nthly or less [facility] Start: 1950 Sex assigned at Not on file [facility] Tobacco smoking stat us SCIS Unknown if ever smoked [facility] Work Phone: Start: 10-24-2024 Sex Female (finding) [facility] Clinical Notes 11-10-2022 to 03-14-2025 Note Date & Type Note Facility 03-14-2025 Evaluation note Diagnosis Onset Date Resolution Viral upper respiratory infection acute March 14, 2025 1 :58pm [facility] Work Phone: 1(263) 492-595807-01-2025 Evaluation note* Diagnosis Onset Date Resolution Status Admit Date Viral upper respiratory infection deleted March 14, 2025 1 :58pm Wheezing noneactive March 20, 2025 10:43am Acute bronchitis due to othe r specified organisms noneactive March 20 10:43am Elevated cholesterol acute Augu st 2024 9:03am Essential hypertension acute Au ri[place] 2024 9:03am Hx of normocytic normochromi c anemia acute April 26 9:03am Obesity acute April 26, 025 9:03am Restless leg syndrome acute Aug ust 2024 9:03am Screening mammogram for breast cancer acute April 26 9:03am Symptomatic PVCs acute April 142024 9:03am Medicare annual wellness visit, subsequent noneactive April 26, 025 9:03am [facility] Work Phone: 1(857) 532-844906-19-2025 History of Present illness Narrative* Maninder Ignacio DPM - 03/02/2025 9:45 AM EDT Images from the original note were not included. Subjective Patient ID: Yolande Romero is a 74 y.o. female who presents for Toenail Care (Established patientpresents today for routine nail care. ). HPI Chief complaint: Symptomatic toenail deformity. Requesting nail care. Again identifies left great toe; digits 2 right; 3 left as problematic/symptomatic; several weeks duration. Describes pressure discomfort with footwear, impacting walking activity. Also complains of catchingand snagging on clothing, bed sheets etc..; impingement on adjacent digits. Denies bleeding or drainage. Self care measures are difficult, ineffective and not practical; increasing risk exposure. Family members unable to provide effective care. Palliative care measures have provided favorable transient symptom relief. Risk factors: ASA therapy. Mobility and flexibility limitations. Toenail deformity. Digital and/or shoe trauma and related complications. Medications Current Outpatient Medications: aspirin 81 MG EC tablet, , Disp: , Rfl: atorvastatin (Lipitor) 20 MG tablet, Take 20 mg by mouth Daily, Disp: , Rfl: hydroCHLOROthiazide (HYDRODiuril) 25 MG tablet, , Disp: , Rfl: lisinopril 20 MG tablet, , Disp: , Rfl: meclizine (Antivert) 25 MG tablet, , Disp: , Rfl: metoprolol succinate XL (Toprol-XL) 50 MG 24 hr tablet, Take 50 mg by mouth Daily, Disp: , Rfl: ondansetron ODT (Zofran-ODT) 4 MG disintegrating tablet, , Disp: , Rfl: potassium chloride CR (Klor-Con) 10 MEQ ER tablet, , Disp: , Rfl: prednisoLONE acetate (Pred-Forte) 1 % ophthalmic suspension, , Disp: , Rfl: rOPINIRole (Requip) 0.25 MG tablet, , Disp: , Rfl: Allergies Hydromorphone, Morphine, and Sulfa antibiotics Past Surgical History Past Surgical History: Procedure Laterality Date BASAL CELL CARCINOMA EXCISION Bilateral 02/2022 CERVICAL FUSION 2014 HYSTERECTOMY 1990 Family History Family History Problem Relation Name Age of Onset Diabetes Mother Stroke Mother Diabetes Father Diabetes Sibling Heart disease Sibling Diabetes Daughter Diabetes Son Melanoma Neg Hx Objective GENERAL ASSESSMENT: Alert and oriented. Pleasant disposition. Wearing Liu athletic shoes with Powerstep orthoses. Vascular: DP 1/4 bilateral. PT 1/4 bilateral. CFT brisk all digits. Unremarkable for ankle edema. Neurologic: Tactile and light touch sensation intact. Dermatologic: Skin turgor is good. Web space areas are clean, dry, non-inflamed. Unremarkable for eczema or dermatitis. Left great toe: Toenail dystrophy, thickening, discoloration, crumbly texture, subtotal detachment,periungual hyperkeratosis, without drainage. Digits 2 right; 3 left: Toenail dystrophy, discoloration and clinical mycosis. Orthopedic: Range of motion: Demonstrates functional ankle, subtalar and 1st MTP joint range of motion. Lesion pattern: No forefoot or digital discrete keratotic lesions are noted. Radiology: Assessment/Plan Symptomatic onychodystrophy/mycosis left great toe; digits 2 right; 3 left. PT tendonitis right by history; symptoms effectively resolved Plan: Conservative and palliative care measures are preferred, understood and again indicated. Patient expresses no interest in oral therapy. Discussed topical care measures for consideration; use of vinegar and/or Listerine as directed; advised as to limited efficacy. Procedure: Toenail debridement: Aseptic technique: Hand and power instrumentation: Onychodebridement in length and thickness, with curettage of any cryptotic margins, all periungual debris; providingeffective symptom and pressure relief; reducing shoe and digital trauma. This note was created with the assistance of a speech recognition program. While intending to generate a timely document that accurately reflects the content of the visit, no guarantee can be provided that every grammatical or spelling mistake has been or will be identified or corrected. Thank you for your understanding. Maninder Ignacio DPM [facility] Instructions* Patient Instructions* Maninder Ignacio DPM - 03/02/2025 9:45 AM EDT As noted [facility] History of Present illness Narrative* Yolande Cornejo MD - 01/30/2025 10:20 AM EDT Skin Check Location: Patient requests a full body skin examination Dermatologic history: history of Actinic Keratosis, history of Basal Cell Carcinoma, history of atypia nevus left thigh Last visit: 6 months ago Established patient All pertinent medical history, medications, and allergies were reviewed. General Exam: alert, oriented to person, place, and time, normal affect, well appearing Unaccompanied Scalp, Examined Right leg Examined Head, Face Examined Left leg Examined Neck Examined Right foot Examined Chest Examined Left foot Examined Back Examined Buttocks Examined Patient kept underwear on Abdomen Examined Digits,nails: Examined Right arm Examined Left arm Examined Lymphatics: Not examined Hands Examined Skin Exam 1. SEBORRHEIC KERATOSIS Generalized Stuck on verrucous, watkins-brown papules and plaques. Patient was counseled regarding these benign growths. Removal is normally not necessary, but they may be removed if they are symptomatic or for cosmetic reasons. 2. LENTIGINES Generalized Scattered watkins macules in sun-exposed areas. The patient was informed that lentigines are benign pigmented lesions that occur on sun-exposed andsun-damaged skin. No treatment is necessary. Recommended regular use of broad spectrum sunscreen SPF 30 or higher 3. OTHER ROSACEA Head - Anterior (Face) Mild flare of mid face erythema with telangiectasias + scattered inflammatory papules. Mild today. The patient was informed that rosacea a chronic condition that can be controlled but not cured. Mild today. 4. HISTORY OF BASAL CELL CARCINOMA left quiñonez, and left posterior shoulder No evidence of recurrence at BCC scar. The patient was counseled that scars from excisional sites of nonmelanoma skin cancers should be monitored closely for recurrence. The patient was instructed to contact the office for any new, changing, or symptomatic moles. The patient was also instructed to contact the office for any new lesions that develop within or around the previous surgery scar. 5. HISTORY OF NEVUS EXCISION left thigh No evidence of recurrence in scar from atypical mole excision. Notify office for any recurrence at surgery site or for any new or changing lesions. 6. ACTINIC KERATOSIS (4) Left Buccal Cheek, Left Forehead, Left Mid [place], Right Ear Erythematous scaly papules Patient was counseled regarding these sun-induced growths that can develop into squamous cell carcinoma if left untreated. Discussed treatment with cryotherapy. It was emphasized that any treated lesions that fail to resolve should be re- evaluated. Cryotherapy performed today; see procedure note Diagnosis: Actinic keratosis Indication: Precancerous Location: see skin exam Consent: Verbal consent was obtained and risks were discussed, including, but not limited to risks of scarring, darker or it architecture analyst pigmentary changes, recurrence, incomplete removal and infection. Method: Liquid nitrogen was used to treat the lesion(s) with two 5-10 second freeze-thaw cycles. Number of lesions treated: 4 Post-procedure instructions: Instructions were given orally and in writing. The office will be contacted if the lesion fails to resolve despite treatment, or if a side effect develops such as abnormal crusting, scabbing, redness or tenderness Cryotherapy, skin lesion - Left Buccal Cheek, Left Forehead, Left Mid [place], Right Ear Next Visit: 6 month skin exam documented in this encounterWright [facility] [id number] History of Present illness Narrative* Maninder Ignacio DPM - 11/03/2024 8:30 AM EST Images from the original note were not included. Subjective Patient ID: Yolande Romero is a 74 y.o. female who presents for No chief complaint on file.. HPI Chief complaint: Symptomatic toenail deformity. Requesting nail care. Again identifies left great toe; digits 2 right; 3 left as problematic/symptomatic; several weeks duration. Describes pressure discomfort with footwear, impacting walking activity. Also complains of catchingand snagging on clothing, bed sheets etc..; impingement on adjacent digits. Denies bleeding or drainage. Self care measures are difficult, ineffective and not practical; increasing risk exposure. Family members unable to provide effective care. Palliative care measures have provided favorable transient symptom relief. Risk factors: ASA therapy. Mobility and flexibility limitations. Toenail deformity. Digital and/or shoe trauma and related complications. Medications Current Outpatient Medications: aspirin 81 MG EC tablet, Daily, Disp: , Rfl: atorvastatin (Lipitor) 20 MG tablet, Take 20 mg by mouth Daily, Disp: , Rfl: hydroCHLOROthiazide (HYDRODiuril) 25 MG tablet, , Disp: , Rfl: lisinopril 20 MG tablet, , Disp: , Rfl: meclizine (Antivert) 25 MG tablet, , Disp: , Rfl: metoprolol succinate XL (Toprol-XL) 50 MG 24 hr tablet, Take 50 mg by mouth Daily, Disp: , Rfl: ondansetron ODT (Zofran-ODT) 4 MG disintegrating tablet, , Disp: , Rfl: potassium chloride CR (Klor-Con) 10 MEQ ER tablet, , Disp: , Rfl: rOPINIRole (Requip) 0.25 MG tablet, , Disp: , Rfl: Allergies Hydromorphone, Morphine, and Sulfa antibiotics Past Surgical History Past Surgical History: Procedure Laterality Date BASAL CELL CARCINOMA EXCISION Bilateral 02/2022 CERVICAL FUSION 2014 HYSTERECTOMY 1991 Family History Family History Problem Relation Name Age of Onset Diabetes Mother Stroke Mother Diabetes Father Diabetes Sibling Heart disease Sibling Diabetes Son Diabetes Daughter Objective GENERAL ASSESSMENT: Alert and oriented. Pleasant disposition. Wearing Liu athletic shoes with Powerstep orthoses. Vascular: DP 1/4 bilateral. PT 1/4 bilateral. CFT brisk all digits. Unremarkable for ankle edema. Neurologic: Tactile and light touch sensation intact. Dermatologic: Skin turgor is good. Web space areas are clean, dry, non-inflamed. Unremarkable for eczema or dermatitis. Left great toe: Toenail dystrophy, thickening, discoloration, crumbly texture, subtotal detachment,periungual hyperkeratosis, without drainage. Digits 2 right; 3 left: Toenail dystrophy, discoloration and clinical mycosis. Orthopedic: Range of motion: Demonstrates functional ankle, subtalar and 1st MTP joint range of motion. Lesion pattern: No forefoot or digital discrete keratotic lesions are noted. Radiology: Assessment/Plan Symptomatic onychodystrophy/mycosis left great toe; digits 2 right; 3 left. PT tendonitis right by history; symptoms effectively resolved Plan: Conservative and palliative care measures are preferred, understood and again indicated. Patient expresses no interest in oral therapy. Discussed topical care measures for consideration; use of vinegar and/or Listerine as directed; advised as to limited efficacy. Procedure: Toenail debridement: Aseptic technique: Hand and power instrumentation: Onychodebridement in length and thickness, with curettage of any cryptotic margins, all periungual debris; providingeffective symptom and pressure relief; reducing shoe and digital trauma. This note was created with the assistance of a speech recognition program. While intending to generate a timely document that accurately reflects the content of the visit, no guarantee can be provided that every grammatical or spelling mistake has been or will be identified or corrected. Thank you for your understanding. Maninder Ignacio DPM [facility] Instructions* Patient Instructions* Maninder Ignacio DPM - 11/03/2024 8:30 AM EST As noted [facility] History of Present illness Narrative* Yolande Cornejo MD - 08/01/2024 8:50 AM EST Images from the original note were not included. Skin Check Location: Patient requests a full body skin examination Dermatologic history: history of Actinic Keratosis, history of Basal Cell Carcinoma Last visit: 6 months ago Established patient Lesions: Location: face, ears, right knee Duration: months Quality: denies pain, denies itch, denies bleeding Modifying factors: aggravated by picking Associated symptoms: non-healing, rough Treatments: none All pertinent medical history, medications, and allergies were reviewed. General Exam: alert, oriented to person, place, and time, normal affect, well appearing Unaccompanied Scalp, Examined , exam limited by hair Right leg Examined Head, Face Examined Left leg Examined Neck Examined Right foot Examined Chest Examined Left foot Examined Back Examined Buttocks Examined Abdomen Examined Digits,nails: Examined Right arm Examined Left arm Examined Lymphatics: Not examined Hands Examined 1. Seborrheic keratosis Neck - Anterior Stuck on verrucous, watkins-brown papules and plaques. Patient was counseled regarding these benign growths. Removal is normally not necessary, but they may be removed if they are symptomatic or for cosmetic reasons. 2. History of basal cell carcinoma Neck - Posterior No evidence of recurrence at BCC scar. The patient was counseled that scars from excisional sites of nonmelanoma skin cancers should be monitored closely for recurrence. The patient was instructed to contact the office for any new, changing, or symptomatic moles. The patient was also instructed to contact the office for any new lesions that develop within or around the previous surgery scar. 3. Lentigines Scattered watkins macules in sun-exposed areas. The patient was informed that lentigines are benign pigmented lesions that occur on sun-exposed andsun-damaged skin. No treatment is necessary. Recommended regular use of broad spectrum sunscreen SPF 30 or higher 4. Actinic keratosis (12) Left Anterior Mandible, Left Buccal Cheek, Left Lower Leg - Anterior (2), Left Parotid Area, Left Muslim, Right Buccal Cheek, Right Lower Leg - Anterior (2), Right Lower Leg - Posterior, Right Mid [place], Right Upper Arm - Posterior Erythematous scaly papules Patient was counseled regarding these sun-induced growths that can develop into squamous cell carcinoma if left untreated. Discussed treatment with cryotherapy. It was emphasized that any treated lesions that fail to resolve should be re- evaluated. Cryotherapy performed today; see procedure note Diagnosis: Actinic keratosis Indication: Precancerous Location: see skin exam Consent: Verbal consent was obtained and risks were discussed, including, but not limited to risks of scarring, darker or it architecture analyst pigmentary changes, recurrence, incomplete removal and infection. Method: Liquid nitrogen was used to treat the lesion(s) with two 5-10 second freeze-thaw cycles. Eyes were shielded using cotton pad during procedure Number of lesions treated: 12 Post-procedure instructions: Instructions were given orally and in writing. The office will be contacted if the lesion fails to resolve despite treatment, or if a side effect develops such as abnormal crusting, scabbing, redness or tenderness Cryotherapy, skin lesion - Left Anterior Mandible, Left Buccal Cheek, Left Lower Leg - Anterior (2), Left Parotid Area, Left Muslim, Right Buccal Cheek, Right Lower Leg - Anterior (2), Right Lower Leg - Posterior, Right Mid [place], Right Upper Arm - Posterior 5. Neoplasm of unspecified behavior of bone, soft tissue, and skin Left Malar Cheek Remer papule Lesion biopsy Type of biopsy: tangential Informed consent: discussed and consent obtained Informed consent comment: The risks and benefits of the biopsy were discussed. Risks include but are not limited to bleeding, infection, scarring, pain, and nerve damage. An opportunity to ask questions prior to the procedure was permitted and all questions were answered. Patient was prepped and draped in usual sterile fashion: area cleansed with alcohol. Anesthesia: the lesion was anesthetized in a standard fashion Anesthetic: 1% lidocaine w/ epinephrine 1-100,000 buffered w/ 8.4% NaHCO3 Instrument used: DermaBlade Hemostasis achieved with: electrodesiccation Outcome: patient tolerated procedure well Outcome comment: The specimen was placed in a prelabeled formalin container to be sent for pathology Post-procedure details: sterile dressing applied and wound care instructions given Post-procedure details comment: Emphasized need to contact clinic for any signs of infection, uncontrollable bleeding, or complications. Dressing type: bandage Additional details: Photo taken. Amount of lidocaine used: 0.4cc Specimen A - Dermatopathology exam Differential Diagnosis: inflamed nevus vs BCC Check Margins: No Size of lesion: 0.4 x 0.4 cm 6. Seborrheic keratosis, inflamed Right Muslim Remer and brown stuck on verrucous scaly papule with surrounding erythema The patient was informed that symptomatic seborrheic keratoses are benign growths that become inflamed, itchy, tender, traumatized, caught on clothing, or bleed. Symptomatic lesions can be treated with cryotherapy or curretage. Thicker lesions treated with cryotherapy may require more than one treatment. The patient was instructed to notify the office if abnormal redness or tenderness develops atthe treatment site. Cryotherapy today, see procedure note. Diagnosis: Inflamed seborrheic keratosis Indication: Inflamed Consent: Verbal consent was obtained and risks were discussed, including, but not limited to risks of scarring, darker or it architecture analyst pigmentary changes, recurrence, incomplete removal and infection. Method: Liquid nitrogen was used to treat the lesion(s) with two 5-10 second freeze-thaw cycles Number of lesions treated: 1 Post-procedure instructions: Instructions were given orally and in writing. The office will be contacted if the lesion fails to resolve despite treatment, or if a side effect develops such as abnormal crusting, scabbing, redness or tenderness Cryotherapy, skin lesion - Right Muslim 7. Capillary angioma (2) Generalized, Right Knee - Anterior Scattered mcclure-red papule(s). The patient was informed that angiomas are benign growths on the the skin. No treatment is necessary. Next Visit: 6 months documented in this encounterWright Memorial [id number] History of Present illness Narrative* Maninder Ignacio DPM - 07/27/2024 9:45 AM EST Images from the original note were not included. Subjective Patient ID: Yolande Romero is a 74 y.o. 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 Pt has been using a topical azeri agent on her nails.). HPI Chief complaint: Toenail deformity and discoloration. Requesting nail care. Identifies left great toe; digits 2 right; 3 left as problematic/symptomatic; particularly over thepast several weeks or so. Describes pressure discomfort with footwear, impacting walking activity. Also complains of catchingand snagging on clothing, bed sheets etc.. Denies bleeding or drainage. Self care measures are difficult, ineffective and not practical; increasing risk exposure. Family members unable to provide effective care. Palliative care measures have provided favorable transient symptom relief. Risk factors: ASA therapy. Mobility and flexibility limitations. Toenail deformity. Digital and/or shoe trauma and related complications. Medications Current Outpatient Medications: aspirin 81 MG EC tablet, Daily, Disp: , Rfl: atorvastatin (Lipitor) 10 MG tablet, Atorvastatin Calcium, Disp: , Rfl: hydroCHLOROthiazide (HYDRODiuril) 25 MG tablet, , Disp: , Rfl: lisinopril 20 MG tablet, , Disp: , Rfl: meclizine (Antivert) 25 MG tablet, , Disp: , Rfl: metoprolol succinate XL (Toprol-XL) 25 MG 24 hr tablet, 50 mg., Disp: , Rfl: ondansetron ODT (Zofran-ODT) 4 MG disintegrating tablet, , Disp: , Rfl: potassium chloride CR (Klor-Con) 10 MEQ ER tablet, , Disp: , Rfl: rOPINIRole (Requip) 0.25 MG tablet, , Disp: , Rfl: Allergies Morphine and Sulfa antibiotics Past Surgical History Past Surgical History: Procedure Laterality Date BASAL CELL CARCINOMA EXCISION Bilateral 02/2022 CERVICAL FUSION 2014 HYSTERECTOMY 1990 Family History Family History Problem Relation Name Age of Onset Diabetes Mother Stroke Mother Diabetes Father Diabetes Sibling Heart disease Sibling Diabetes Son Diabetes Daughter Objective GENERAL ASSESSMENT: Alert and oriented. Pleasant disposition. Wearing [employer] athletic shoes with Powerstep orthoses. Vascular: DP 1/4 bilateral. PT 1/4 bilateral. CFT brisk all digits. Unremarkable for ankle edema. Neurologic: Tactile and light touch sensation intact. Dermatologic: Skin turgor is good. Web space areas are clean, dry, non-inflamed. Unremarkable for eczema or dermatitis. Left great toe: Toenail dystrophy, thickening, discoloration, crumbly texture, subtotal detachment,periungual hyperkeratosis, without drainage. Digits 2 right; 3 left: Toenail dystrophy, discoloration and clinical mycosis. Orthopedic: Range of motion: Demonstrates functional ankle, subtalar and 1st MTP joint range of motion. Lesion pattern: No forefoot or digital discrete keratotic lesions are noted. Radiology: Assessment/Plan Symptomatic onychodystrophy/mycosis left great toe; digits 2 right; 3 left. PT tendonitis right by history; symptoms effectively resolved Plan: Conservative and palliative care measures are preferred, understood and again indicated. Patient expresses no interest in oral therapy. Discussed topical care measures for consideration; use of vinegar and/or Listerine as directed; advised as to limited efficacy. Procedure: Toenail debridement: Aseptic technique: Hand and power instrumentation: Onychodebridement in length and thickness, with curettage of any cryptotic margins, all periungual debris; providingeffective symptom and pressure relief; reducing shoe and digital trauma. This note was created with the assistance of a speech recognition program. While intending to generate a timely document that accurately reflects the content of the visit, no guarantee can be provided that every grammatical or spelling mistake has been or will be identified or corrected. Thank you for your understanding. Maninder Ignacio DPM documented in this encounterWright [facility] [id number] Evaluation note* Encounter Date Diagnosis Assessment Notes Treatment Notes Treatment Clinical Notes Sep, Primary hypertension (ICD-10 - I10) [...] index [BMI] 31.0-31.9, adult (ICD-10 - Z68.31) [employer] Other 08-18-2023 Evaluation note* Encounter Date Diagnosis Assessment Notes Treatment Notes Treatment Clinical Notes Apr, Essential hypertension (ICD-10 - I10) [employer] Other 07-27-2023 Evaluation note* Encounter Date Diagnosis Assessment Notes Treatment Notes Treatment Clinical Notes Mar, Medicare annual wellness visit, subsequent [...] and push fluids Increase activity, walk daily 27 Albino, 2023 Other obesity due to excess calories (ICD-10 [...] mammogram for breast cancer (ICD-10 - Z12.31) [employer] Other 02-27-2023 Evaluation note* Encounter Date Diagnosis Assessment Notes Treatment Notes Treatment Clinical Notes Oct, Essential hypertension (ICD-10 - I10) [employer] Other Evaluation noteNo InformationNort [employer] Other Evaluation note* Diagnosis Onset Date Resolution Status Elevated cholesterol acute Essential hypertension acute Restless leg syndrome acute Symptomatic PVCs acute [facility] Work Phone: Evaluation note* Diagnosis Onset Date Resolution Status Elevated cholesterol acute Essential hypertension acute Restless leg syndrome acute Symptomatic PVCs acute Medicare annual wellness visit, subsequent noneactive [facility] Work Phone: Evaluation note* Diagnosis Dermatophytosis of nail- Primary Dystrophic nail Other specified disease of nail Pain around toenail, right foot Pain around toenail, left foot [facility] Diagnosis Seborrheic keratosis- Primary History of basal cell carcinoma Personal history of other malignant neoplasm of skin Lentigines Actinic keratosis Neoplasm of unspecified behavior of bone, soft tissue, and skin Seborrheic keratosis, inflamed Capillary angioma Nevus, non-neoplastic [facility]* Diagnosis Onset Date Resolution Status Admit Date Elevated cholesterol acute Febr ua2024 8:56am Essential hypertension acute Fe bruary 2024 8:56am Restless leg syndrome acute Feb ru2024 8:56am Symptomatic PVCs acute October 24, 2024 8:56am [facility] Work Phone: Evaluation note* Diagnosis Dermatophytosis of nail- Primary Dystrophic nail Other specified disease of nail Pain around toenail, right foot Pain around toenail, left foot documented in this encounter [facility]* Diagnosis Seborrheic keratosis- Primary Lentigines Other rosacea History of basal cell carcinoma Personal history of other malignant neoplasm of skin History of nevus excision Actinic keratosis documented in this encounter 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 Medical History Restless leg syndrome Medical History Hypokalemia Medical History A-fib Surgical History ROBIN/BSO 03/2004 Surgical History appendectomy 1990 Surgical History hysterectomy Surgical History CERVICAL SPINE FUSION Hospitalization History see surgical history [employer] Other Reason for referral (narrative)No reason for referral information available[facility]: Summary Purpose Family History No Family History Records FoundNo Family History Records Found Advance Directives Advance Directive Response Recorded Date/ Time Advance Directives No October 12, 2023 2:40pm Advance Directive Response Recorded Date/ Time Advance Directives No October 12, 2023 1:40pm Chief Complaint and Reason for Visit Chief Complaint Check up Reason for Visit Elevated cholesterol Essential hypertension Restless leg syndrome Symptomatic PVCs Chief Complaint Wellness Reason for Visit Elevated cholesterol Essential hypertension Restless leg syndrome Symptomatic PVCs Medicare annual wellness visit, subsequent Chief Complaint Admit Date 6 month f/u October 24, 2024 8:56am Reason for Visit Admit Date Elevated cholesterol October 24, 2024 8:56am Essential hypertension October 24 8:56am Restless leg syndrome October 24 8:56am Symptomatic PVCs October 24, 2024 8:56am Chief Complaint Admit Date cough, sore throat, stuffy nose March 1:58pm Reason for Visit Admit Date Viral upper respiratory infection March 142024 1:58pm Chief Complaint Admit Date cough, sore throat, stuffy nose March 1:58pm Coughing up mucus with blood March 20 10:43am Chief Complaint Admit Date cough, sore throat, stuffy nose March 1:58pm Coughing up mucus with blood March 20 10:43am Wellness April 26, 2025 9: 03am Reason for Visit Admit Date Viral upper respiratory infection March 142024 1:58pm Wheezing March 20, 2025 10:43 am Acute bronchitis due to other specified organisms March 20, 2025 10:43am Elevated cholesterol April 26, 2025 9 :03am Essential hypertension April 26, 2025 9:03am Hx of normocytic normochromic anemia Aug ust 2024 9:03am Obesity April 26, 2025 9: 03am Restless leg syndrome April 26, 2025 9:03am Screening mammogram for breast cancer [facility] 2024 9:03am Symptomatic PVCs April 26, 2025 9: 03am Medicare annual wellness visit, subseque nt April 26, 2025 9:03am Additional Source Comments INFORMATION SOURCE (unrecogn ized section and content) DATE CREATED AUTHOR 05/08/2022 [facility] DATE CREATED AUTHOR AUTHOR'S ORGANIZ ATION 03/05/2025 [facility] EPIC REASON FOR VISIT (unrecogniz ed section and content) Reason Comments Toenail 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 Pt has been using a topical azeri agent on her nails. Reason Comments Skin Check Reason Comments Toenail Care Established pt prese nts today for nail care. Reason Comments Toenail Care Established patient presents today for routine nail care. Care Teams (unrecognized sec tion and content) Team Status: Active Member Role Status Dates Huy Hernandez DO Primary Care Provider Active Team Status: Inactive Member Role Status Dates Huy Hernandez DO Primary Care Provider Active Start: March 14, 2025 End: March 14, 2025 Cecile Greenberg APRN Attending Provider Active Start: March 14, 2025 End: March 14, 2025 Team Status: Active Member Role Status Dates Huy Ball , DO Primary Care Provide r, Attending Provider Active Start: October 19, 2024 Team Status: Inactive Member Role Status Dates Huy Hernandez DO Primary Care Provide r, Attending Provider Active Start: October 24, 2024 End: October 24, 2024 Team Status: Inactive Member Role Status Dates Huy Hernandez DO Primary Care Provide r, Attending Provider Active Start: January 11, 2024 End: January 11, 2024 Team Status: Inactive Member Role Status Dates Huy Hernandez DO Primary Care Provide r, Attending Provider Active Start: April 20, 2024 End: April 20, 2024 [employer] Relationship Specialty Start Date End Date Huy Hernandez MD [address] [place] [address] PCP - General Internal Medicine 03/12/23 [employer] Relationship Specialty Start Date End Date Huy Hernandez MD [address] [place] [address] PCP - General Internal Medicine 03/12/23 [employer] Relationship Specialty Start Date End Date Huy Hernandez MD [address] [place] [address] PCP - General Internal Medicine 03/12/23 [employer] Relationship Specialty Start Date End Date Huy Hernandez MD [address] [place] [address] PCP - General Internal Medicine 03/12/23 [employer] Relationship Specialty Start Date End Date Huy Hernandez DO PCP - General Internal Medicine 03/12/23 [employer] Relationship Specialty Start Date End Date Huy Hernandez DO PCP - General Internal Medicine 03/12/23 [employer] Relationship Specialty Start Date End Date Huy Hernandez DO [address] [place] [id number] PCP - General Internal Medicine 03/12/23 [employer] Relationship Specialty Start Date End Date Huy Hernandez DO [address] [place] [id number] PCP - General Internal Medicine 03/12/23 Team Status: Inactive Member Role Status Dates Hyu Hernandez DO Primary Care Provider Active Start: March 20, 2025 End: March 20, 2025 Huy Hernandez DO Attending Provider Active Sta rt: March 20, 2025 End: March 20, 2025 Team Status: Inactive Member Role Status Dates Huy Hernandez DO Primary Care Provider Active Start: April 26, 2025 End: April 26, 2025 Huy Hernandez DO Attending Provider Active Sta rt: April 26, 2025 End: April 26, 2025 Goals (unrecognized section and content) Goals may [...] BE BASED ON THE PRIMARY CLINICAL RECORDS. [employer] [facility]. provides no warranty or guarantee of the accuracy or completeness of information in this document.
--- NOTE | 2025-05-17 06:59 | MM_ITS ---
Patient Name: DANIEL HERNANDEZ MR#: [id number] : 1950 Exam Date: 05/17/2025 Ordering Doctor: DR BRISA SCHROEDER D.O. RADIOLOGY REPORT PROCEDURE: MM TOMOSYNTHESIS SCREENING BI COMPARISON: MM TOMOSYNTHESIS SCREENING BI, 05/11/2024. MM TOMOSYNTHESIS SCREENING BI, 05/04/2023. MG MAMM SCREEN 3D ODELL CAD, 05/02/2022. MG MAMM ODELL SCRN W CAD DIG, 05/03/2013. INDICATIONS: Screening for malignant neoplasm Calculator Name NCI Breast Cancer Risk Assessment Tool 5 Year Breast Cancer Risk 1.60% Lifetime Breast Cancer Risk 3.00% Personal Breast Cancer No Personal Ovarian Cancer No Treatments None Family Cancers Father with rectal cancer at age 70. LOCATION: [facility] BREAST COMPOSITION: The breasts are almost entirely fatty. FINDINGS: RIGHT BREAST: No significant suspicious finding. Benign-appearing lymph nodes are noted along the chest wall. LEFT BREAST: No significant suspicious finding. Benign-appearing lymph nodes are noted along the chest wall. DIAGNOSTIC CATEGORY 1--NEGATIVE. NO CHANGE FROM COMPARISON ASSESSMENT. RECOMMENDATIONS: ROUTINE MAMMOGRAM AND CLINICAL EVALUATION IN 12 MONTHS. Dictated by: Peter Yepez MD on 05/17/2025 at 15:50 Approved by: Peter Yepez MD on 05/17/2025 at 15:54
[2025-05-17 08:05] LABS: Hematocrit 37.4 % (36.0-48.0); Hemoglobin 12.3 g/dL (12.0-16.0); Immature Granulocytes Abs Auto 0.02 10^3/uL (0.00-0.03); Immature Granulocytes Pct Auto 0.4 % (0.0-0.5); Lymphocytes Absolute Auto 1.6 10^3/uL (1.2-3.8); Mean Corpuscular HGB Conc 32.9 g/dL (29.9-35.2); Mean Corpuscular Hemoglobin 30.7 pg (26.7-34.0); Mean Corpuscular Volume 93.3 fL (81.0-99.0); Platelet Count 253 10^3/uL (150-450); Red Blood Count 4.01 10^6/uL (4.20-5.40); White Blood Count 4.9 10^3/uL (4.0-11.0)
[2025-05-17 11:41] LABS: Alanine Aminotransferase 31 U/L (14-59); Albumin Globulin Ratio 1.1; Albumin Level 3.7 g/dL (3.4-5.0); Alkaline Phosphatase 81 U/L (46-116); Anion Gap 11.1; Aspartate Amino Transferase 23 U/L (15-37); Blood Urea Nitrogen 17.0 mg/dL (7.0-18.0); Calcium 9.4 mg/dL (8.5-10.1); Carbon Dioxide 29.7 mmol/L (21.0-32.0); Chloride 105 mmol/L (98-107); Cholesterol 163 mg/dL (<=200); Estimated GFR (African America >60 (>=60 mL/min/1.73m^2); Estimated GFR (Non-African Ame >60 (>=60 mL/min/1.73m^2); Globulin 3.5 g/dL; Glucose 98 mg/dL (74-106); HDL Cholesterol 49 mg/dL (40-60); Potassium 3.8 mmol/L (3.5-5.1); Sodium 142 mmol/L (136-145); Thyroid Stimulating Hormone 2.675 uIU/mL (0.358-3.740); Total Protein 7.2 g/dL (6.4-8.2); Triglycerides 139 mg/dL (<=150); VLDL CHOLESTEROL 27.8 mg/dL
== END 2025-05-17 06:57 | disposition home or self-care (01) ==
LOC: MAMMO 06:56
PROVIDERS: PCP Internal Medicine; Visit Provider Internal Medicine
DX: Z86.2 Personal history of diseases of the blood and blood-forming organs and certain disorders involving the immune mechanism (principal); E78.00 Pure hypercholesterolemia, unspecified; I10 Essential (primary) hypertension; R53.83 Other fatigue; Z12.31 Encounter for screening mammogram for malignant neoplasm of breast; Z80.8 Family history of malignant neoplasm of other organs or systems
CPT/HCPCS: 36415; 77063; 77067; 80053; 80061; 84443; 85025